=== PATIENT | male | born 1955 ===

== ENCOUNTER 2022-07-27 15:46 | Inpatient (IN) | payer MEDICARE, MEDICAID, SELFPAY ==
--- OUTSIDE RECORDS SUMMARY | 2022-07-27 15:52 | XMS_ITS | Continuity of Care Document ---
:1955 Author Organization [facility] Address [address] [place] [address]- Care Team Providers Name Role Phone Zoila Khan MD Primary Care Physician Encounter [facility] [place](s): 05/29/21 - 06/28/21 [facility] [address] [address] Attending Physician: Gely Jackson Admitting Physician: Gely Jackson Referring Physician: AdmtrGely Allergies, Adverse Reactions, Alerts Substance Reaction Severity Status venlafaxine Active Immunizations Given and Recorded Vaccine Date Status Refusal Reason Influenza Vaccine (oldterm)1 06/04/17 Given tetanus/diphtheria/pertussis, acel(Tdap) 04/25/15 Given Pneumococcal Vacc (oldterm)2 02/08/12 Given 1Admin Note: Per list from [id number] Note: Per info from PCP Medications atorvastatin 40 mg oral tablet 1 tablet = 40 mg, By Mouth, Daily at bedtime, 0 Refills, Maintenance, 12/20/14 14:31:03 Start Date: 12/20/14 Status: OrderedCane See Instructions, # 1 units, Maintenance, Quad cane for gait instability due to neuropathy, 05/15/1310:12:06, Compound Start Date: 05/15/13 Status: Orderedcitalopram 20 mg oral tablet 2 tablet = 40 mg, By Mouth, Daily, 0 Refills, Maintenance, 09/08/15 21:42:59 Start Date: 09/08/15 Status: OrderedCPAP Machine See Instructions, # 1 each, Refills 12, Tot. Refills 12, Maintenance, CPAP REPLACMENT (CURRENT MACHINE IS OLD AND NOT MEETING HIS NEEDS) CPAP AUTO TITRATION @ 8-16 CM H20 ALL PAP SUPPLIES: TUBING, HEADGEAR, FULL FACE/NASAL MASK, WATER CHAMBER, AND... Start Date: 01/31/15 Status: OrderedCPAP Equipment See Instructions, # 1 each, Refills 11, Tot. Refills 11, Maintenance, DX; G47.33 All Pap Supplies Headgear, Chinstrap, Climate line tubing, Full Face/Nasal Mask, Heated Humidifier, Water Chamber, Filters, etc., refill all supplies, needed for lifetim... Start Date: 10/16/18 Status: OrderedCPAP Equipment See Instructions, # 1 each, Refills 12, Tot. Refills 12, Maintenance, Heated Humidifier Dx RENETTA BHIRS, 03/03/15 14:32:05, Compound Start Date: 03/03/15 Status: OrderedDaily Multi oral tablet 1 tablet, By Mouth, Daily, 0 Refills, Maintenance Start Date: 07/21/13 Status: Orderedelppa CoQ10 = 50 mg, By Mouth, Daily, 0 Refills, Maintenance, 10/15/18 16:24:51 EST Start Date: 10/15/18 Status: OrderedFish Oil = 1,000 mg, By Mouth, Daily, 0 Refills, Maintenance, 09/08/15 21:45:12 Start Date: 09/08/15 Status: Orderedfurosemide 20 mg oral tablet 1.5 tab, By Mouth, Daily, # 30 tablet, Refills 0, Maintenance, 10/23/17 15:28:35 Start Date: 10/23/17 Status: OrderedHydrocodone By Mouth, 0 Refills, Maintenance, 10/15/18 16:26:40 EST Start Date: 10/15/18 Status: Orderedlevothyroxine 112 mcg (0.112 mg) oral capsule 1 capsule = 112 mcg, By Mouth, Daily, # 30 capsule, 0 Refills, Maintenance, 10/15/18 16:23:50 EST, Capsule Start Date: 10/15/18 Status: OrderedLidocaine 5% Topical 1 patch, Topically, 2 times a day, PRN as needed for pain, 0 Refills, Maintenance, Ointment Start Date: 10/23/17 Status: Orderedlosartan 50 mg oral tablet 50 mg, 1, tablet, By Mouth, Daily, # 30 tablet, Refills 0, Maintenance, 05/05/16 12:00:47 Start Date: 01/05/16 Status: Orderedpantoprazole 20 mg oral delayed release tablet 1 tablet = 20 mg, By Mouth, Daily, # 180 tablet, 0 Refills, Maintenance, 10/23/17 15:39:21, EC Tablet Start Date: 10/23/17 Status: Orderedsulindac 200 mg oral tablet 1 tablet = 200 mg, By Mouth, 2 times a day, 0 Refills, Maintenance, 09/08/15 21:43:49 Start Date: 09/08/15 Status: OrderedTramadol By Mouth, 0 Refills, Maintenance, 10/15/18 16:26:20 EST Start Date: 10/15/18 Status: OrderedtraZODone 100 mg oral tablet 1 tablet = 100 mg, By Mouth, Daily at bedtime, 0 Refills, Maintenance, 09/08/15 21:42:22 Start Date: 09/08/15 Status: OrderedVitamin B12 1000 mcg oral tablet 1 tablet = 1,000 mcg, By Mouth, Daily, # 30 tablet, 0 Refills, Maintenance, 10/15/18 16:26:08 EST, Tablet Start Date: 10/15/18 Status: Ordered Problem List Condition Effective Dates Status Health Status Informant Facet arthropathy, lumbar(Confirmed) Active Degeneration of lumbar intervertebral Active disc(Confirmed) Peripheral neuropathy(Confirmed)1 Active Disseminated idiopathic skeletal Active hyperostosis(Confirmed) Edema of lower extremity(Confirmed) Active Hypothyroidism(Confirmed) Active Impotence of organic origin(Confirmed) Active Insomnia(Confirmed) Active Low back pain(Confirmed) Active Mixed hyperlipidemia(Confirmed) Active Myofascial pain(Confirmed) Active Obstructive sleep apnea(Confirmed)2 Active Osteoarthritis of knee(Confirmed) Active Panic disorder without Active agoraphobia(Confirmed) Psychosexual dysfunction(Confirmed) Active Restless legs(Confirmed) Active 1Peripheral Neuropathic Cgzr3VPI 5.0, SMSWM, 04/21/07 Social History Social History Type Response Smoking Status Former smoker; Tobacco user in household: No; Type: Cigarettes; Number of years: 46; Started at age: 13; Stopped at age: 56; entered on: 10/04/15 Sex
--- OUTSIDE RECORDS SUMMARY | 2022-07-27 15:52 | XMS_ITS | Continuity of Care Document ---
:1955 Author Organization [facility] Address [address] [place] [address]- Care Team Providers Name Role Phone Zoila Khan MD Primary Care Physician Encounter [facility] [place] Date(s): 02/24/21 - 03/26/21 [facility] [address] [place] [address]- Attending Physician: Gely Jackson Admitting Physician: Gely Jackson Referring Physician: AdmtrGely Allergies, Adverse Reactions, Alerts Substance Reaction Severity Status venlafaxine Active Immunizations Given and Recorded Vaccine Date Status Refusal Reason Influenza Vaccine (oldterm)1 06/04/17 Given tetanus/diphtheria/pertussis, acel(Tdap) 04/25/15 Given Pneumococcal Vacc (oldterm)2 02/08/12 Given 1Admin Note: Per list from [id number] Note: Per info from PCP Medications atorvastatin [...] MEETING HIS NEEDS) CPAP AUTO TITRATION @ - CM H20 ALL PAP SUPPLIES: TUBING, HEADGEAR, [...] Daily, # 30 tablet, Refills 0, Maintenance, 01/05/16 12:00:47 Start Date: 01/05/16 Status: Orderedpantoprazole 20 [...] dysfunction(Confirmed) Active Restless legs(Confirmed) Active 1Peripheral Neuropathic Ntop2VMQ 5.0, SMSWM, 04/21/07 Social History Social History Type Response Smoking Status Former smoker; Tobacco user in household: No; Type: Cigarettes; Number of years: 46; Started at age: 13; Stopped at age: 56; entered on: 10/04/15 Sex
--- OUTSIDE RECORDS SUMMARY | 2022-07-27 15:52 | XMS_ITS | Continuity of Care Document ---
:1955 Author Organization [facility] Address [address] [place] [address]- Care Team Providers Name Role Phone Bill SANCHEZ, Zoila Jason Primary Care Physician Encounter [facility] [place] Date(s): 02/15/21 - 03/26/21 [facility] [address] [place] [address]- Attending Physician: Gwyn Benitez MD Admitting Physician: Gwyn Benitez MD Referring Physician: Marshall Saavedra MD Allergies, Adverse Reactions, Alerts Substance Reaction Severity Status venlafaxine Active Immunizations Given and Recorded Vaccine Date Status Refusal Reason Influenza Vaccine (oldterm)1 06/04/17 Given tetanus/diphtheria/pertussis, acel(Tdap) 04/25/15 Given Pneumococcal Vacc (oldterm)2 02/08/12 Given 1Admin Note: Per list from [id number] Note: Per info from PCP Medications atorvastatin [...] dysfunction(Confirmed) Active Restless legs(Confirmed) Active 1Peripheral Neuropathic Yoog0BBF 5.0, SMSWM, 04/21/07 Social History Social History Type Response Smoking Status Former smoker; Tobacco user in household: No; Type: Cigarettes; Number of years: 46; Started at age: 13; Stopped at age: 56; entered on: 10/04/15 Sex
--- OUTSIDE RECORDS SUMMARY | 2022-07-27 15:52 | XMS_ITS | Continuity of Care Document ---
:1955 Author Organization [facility] Address Unavailable , Care Team Providers Name Role Phone Zoila Khan MD Primary Care Physician Encounter [facility] [place] Date(s): 02/22/22 - 03/24/22 [facility] Allergies, Adverse Reactions, Alerts Substance Reaction Severity Status venlafaxine Active Immunizations Given and Recorded Vaccine Date Status Refusal Reason Influenza Vaccine (oldterm)1 06/04/17 Given tetanus/diphtheria/pertussis, acel(Tdap) 04/25/15 Given Pneumococcal Vacc (oldterm)2 02/08/12 Given 1Admin Note: Per list from [id number] Note: Per info from PCP Medications atorvastatin [...] 03/03/15 14:32:05, Compound Start Date: 03/03/15 Status: OrderedCPAP Machine CPAP Machine, See Instructions, # 1 each, Refills 0, Tot. Refills 0, Maintenance, CPAP 8-16cm H2O with heated humidification, mask, tubing, filters, headgear, chin strap, and water chamber. Vinayak provider access to wireless compliance data Length of... Start Date: 03/07/22 Status: OrderedDaily Multi oral tablet 1 tablet, [...] Maintenance, 10/23/17 15:28:35 Start Date: 10/23/17 Status: Orderedlevothyroxine 112 mcg (0.112 mg) oral [...] 01/05/16 12:00:47 Start Date: 01/05/16 Status: Orderedpantoprazole 40 mg oral delayed release tablet 1 tablet = 40 mg, By Mouth, Daily, # 90 tablet, 3 Refills, Maintenance, 03/18/22 22:55:00 EDT, EC Tablet, 180, cm, 01/02/22 14:07:00 EDT, Height, 131, kg, 01/02/22 14:07:00 EDT, Dry Weight Start Date: 03/18/22 Status: OrderedPreserVision AREDS 2 oral tablet, chewable 2 times a day, 0 Refills, Maintenance, 09/25/21 16:09:00 EST, Partial fill upon patient request if the prescription is for a schedule II opioid drug. Start Date: 09/25/21 Status: OrderedSchiff Antartic Krill Oil = 1,000 mg, By Mouth, Daily, 0 Refills, Maintenance, 09/25/21 16:11:00 EST, Partial fill upon patient request if the prescription is for a schedule II opioid drug. Start Date: 09/25/21 Status: OrderedTizanidine By Mouth, Refills 0, Maintenance, 12/07/21 13:42:00 EDT, Partial fill upon patient request if the prescription is for a schedule II opioid drug. Start Date: 12/07/21 Status: OrderedTramadol By Mouth, 0 Refills, Maintenance, 10/15/18 16:26:20 EST Start Date: 10/15/18 Status: OrderedtraZODone 100 mg oral tablet 1 tablet = 100 mg, By Mouth, Daily at bedtime, 0 Refills, Maintenance, 09/08/15 21:42:22 Start Date: 09/08/15 Status: OrderedVitamin D3 1000 intl units oral capsule 1 capsule = 25 mcg, By Mouth, Daily, # 100 capsule, 0 Refills, Maintenance, 09/25/21 16:10:00 EST, Capsule, Partial fill upon patient request if the prescription is for a schedule II opioid drug. Start Date: 09/25/21 Status: Ordered Problem List Condition Effective Dates [...] agoraphobia(Confirmed) Psychosexual dysfunction(Confirmed) Active Restless legs(Confirmed) Active Severe obesity(Confirmed) Active 1Peripheral Neuropathic Cfvz1LOK 5.0, SMSWM, 04/21/07 Social History Social History Type Response Smoking Status Former smoker; Tobacco user in household: No; Type: Cigarettes; Number of years: 46; Started at age: 13; Stopped at age: 56; entered on: 10/04/15 Sex
--- OUTSIDE RECORDS SUMMARY | 2022-07-27 15:52 | XMS_ITS | Continuity of Care Document ---
:1955 Author Organization [facility] Address Unavailable , Care Team Providers Name Role Phone Zoila Khan MD Primary Care Physician [place] [facility] [place] 09[place]26/[place] - 10/03/21 [facility] Attending Physician: Osvaldo Valdes MD Admitting Physician: Osvaldo Valdes MD Allergies, Adverse Reactions, Alerts Substance Reaction Severity Status venlafaxine Active Immunizations Given and Recorded Vaccine Date Status Refusal Reason Influenza Vaccine (oldterm)1 06/04/17 Given tetanus/diphtheria/pertussis, acel(Tdap) 04/25/15 Given Pneumococcal Vacc (oldterm)2 02/08/12 Given 1Admin Note: Per list from [id number] Note: Per info from PCP Medications atorvastatin [...] 15:39:21, EC Tablet Start Date: 10/23/17 Status: OrderedPreserVision AREDS 2 oral tablet, chewable [...] II opioid drug. Start Date: 09/25/21 Status: OrderedTramadol By Mouth, 0 Refills, Maintenance, [...] dysfunction(Confirmed) Active Restless legs(Confirmed) Active 1Peripheral Neuropathic Hgsu0NIG 5.0, SMSWM, 04/21/07 Vital Signs Most recent to oldest [Reference Range]: 1 Height 180 cm (09/26/21 4:25 PM) Social History Social History Type Response Smoking Status Former smoker; Tobacco user in household: No; Type: Cigarettes; Number of years: 46; Started at age: 13; Stopped at age: 56; entered on: 10/04/15 Sex
--- OUTSIDE RECORDS SUMMARY | 2022-07-27 15:52 | XMS_ITS | Continuity of Care Document ---
:1955 Author Organization [facility] Address [address] [place] [address]- Care Team Providers Name Role Phone Zoila Khan MD Primary Care Physician [place] [facility] [place] Date(s): 05/03/20 - 07/03/20 [facility] [address] [address] [facility] Attending Physician: Dale Irwin MD Admitting Physician: Dale Irwin MD Allergies, Adverse Reactions, Alerts Substance Reaction Severity Status venlafaxine Active Immunizations Given and Recorded Vaccine Date Status Refusal Reason Influenza Vaccine (oldterm)1 06/04/17 Given tetanus/diphtheria/pertussis, acel(Tdap) 04/25/15 Given Pneumococcal Vacc (oldterm)2 02/08/12 Given 1Admin Note: Per list from [id number] Note: Per info from PCP Medications atorvastatin [...] dysfunction(Confirmed) Active Restless legs(Confirmed) Active 1Peripheral Neuropathic Agih2GUP 5.0, SMSWM, 04/21/07 Social History Social History Type Response Smoking Status Former smoker; Tobacco user in household: No; Type: Cigarettes; Number of years: 46; Started at age: 13; Stopped at age: 56; entered on: 10/04/15 Sex
--- OUTSIDE RECORDS SUMMARY | 2022-07-27 15:52 | XMS_ITS | Continuity of Care Document ---
:1955 Author Organization [facility] Address [address] [place] [address]- Care Team Providers Name Role Phone Bill SANCHEZ, Zoila Jason Primary Care Physician Encounter [facility] [place] Date(s): 05/18/20 - 06/17/20 [facility] [address] [address]- [facility] Allergies, Adverse Reactions, Alerts Substance Reaction Severity Status venlafaxine Active Immunizations Given and Recorded Vaccine Date Status Refusal Reason Influenza Vaccine (oldterm)1 06/04/17 Given tetanus/diphtheria/pertussis, acel(Tdap) 04/25/15 Given Pneumococcal Vacc (oldterm)2 02/08/12 Given 1Admin Note: Per list from [id number] Note: Per info from PCP Medications atorvastatin [...] dysfunction(Confirmed) Active Restless legs(Confirmed) Active 1Peripheral Neuropathic Rpaz5EJY 5.0, SMSWM, 04/21/07 Social History Social History Type Response Smoking Status Former smoker; Tobacco user in household: No; Type: Cigarettes; Number of years: 46; Started at age: 13; Stopped at age: 56; entered on: 10/04/15 Sex
--- OUTSIDE RECORDS SUMMARY | 2022-07-27 15:52 | XMS_ITS | Continuity of Care Document ---
:1955 Author Organization [facility] Address [address] [place] [address], [address] [place] [address], [address] [place] [address]- Care Team Providers Name Role Phone Zoila Khan MD Primary Care Physician En[place] [facility] [place](s): 04/27/20 - 05/27/20 [facility] [address] [place] [address], 3rd [facility], [address] [place] [address]- [facility] Allergies, Adverse Reactions, Alerts Substance Reaction Severity Status venlafaxine Active Immunizations Given and Recorded Vaccine Date Status Refusal Reason Influenza Vaccine (oldterm)1 06/04/17 Given tetanus/diphtheria/pertussis, acel(Tdap) 04/25/15 Given Pneumococcal Vacc (oldterm)2 02/08/12 Given 1Admin Note: Per list from [id number] Note: Per info from PCP Medications atorvastatin [...] dysfunction(Confirmed) Active Restless legs(Confirmed) Active 1Peripheral Neuropathic Gjkp3PJQ 5.0, SMSWM, 04/21/07 Social History Social History Type Response Smoking Status Former smoker; Tobacco user in household: No; Type: Cigarettes; Number of years: 46; Started at age: 13; Stopped at age: 56; entered on: 10/04/15 Sex
--- OUTSIDE RECORDS SUMMARY | 2022-07-27 15:52 | XMS_ITS | Continuity of Care Document ---
:1955 Author Organization [facility] Address [address] [place] [address]- Care Team Providers Name Role Phone Zoila Khan MD Primary Care Physician [place] [facility] [place] Date(s[place] 05/30/20 - 06/30/[address] [address]- [facility] Attending Physician: Dale Irwin MD Admitting Physician: Dale Irwin MD Referring Physician: Dale Irwin MD Allergies, Adverse Reactions, Alerts Substance Reaction Severity Status venlafaxine Active Immunizations Given and Recorded Vaccine Date Status Refusal Reason Influenza Vaccine (oldterm)1 06/04/17 Given tetanus/diphtheria/pertussis, acel(Tdap) 04/25/15 Given Pneumococcal Vacc (oldterm)2 02/08/12 Given 1Admin Note: Per list from [id number] Note: Per info from PCP Medications atorvastatin [...] dysfunction(Confirmed) Active Restless legs(Confirmed) Active 1Peripheral Neuropathic Gyds7YCZ 5.0, SMSWM, 04/21/07 Social History Social History Type Response Smoking Status Former smoker; Tobacco user in household: No; Type: Cigarettes; Number of years: 46; Started at age: 13; Stopped at age: 56; entered on: 10/04/15 Sex
--- OUTSIDE RECORDS SUMMARY | 2022-07-27 15:52 | XMS_ITS | Continuity of Care Document ---
:1955 Author Organization [facility] Address [address] [place] [address]- Care Team Providers Name Role Phone Bill SANCHEZ, Zoila Jason Primary Care Physician En[place] [facility] [place](s): 03/28/20 - 04/27/20 [facility] [address] [address] [facility] Attending Physician: Gely Jackson Admitting Physician: Gely Jackson Referring Physician: AdmtrGely Allergies, Adverse Reactions, Alerts Substance Reaction Severity Status venlafaxine Active Immunizations Given and Recorded Vaccine Date Status Refusal Reason Influenza Vaccine (oldterm)1 06/04/17 Given tetanus/diphtheria/pertussis, acel(Tdap) 04/25/15 Given Pneumococcal Vacc (oldterm)2 02/08/12 Given 1Admin Note: Per list from [id number] Note: Per info from PCP Medications atorvastatin [...] Hypothyroidism(Confirmed) Active Impotence of organic origin(Confirmed) Active Low back pain(Confirmed) Active Mixed hyperlipidemia(Confirmed) Active Myofascial pain(Confirmed) Active Obstructive sleep apnea(Confirmed)2 Active Osteoarthritis of knee(Confirmed) Active Panic disorder 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
--- OUTSIDE RECORDS SUMMARY | 2022-07-27 15:52 | XMS_ITS | Continuity of Care Document ---
:1955 Author Organization [facility] Address [address] [facility] [address] [place] [address]- Care Team Providers Name Role Phone Zoila Khan MD Primary Care Physician Encounter [facility] [place] Date(s): 09/10/19 - 01/06/20 [facility] [address] [facility] [address] [place] [address]- [facility] Attending Physician: Osvaldo Valdes MD Admitting Physician: Osvaldo Valdes MD Referring Physician: Zoila Khan MD Allergies, Adverse Reactions, Alerts Substance Reaction Severity Status venlafaxine Active Immunizations Given and Recorded Vaccine Date Status Refusal Reason Influenza Vaccine (oldterm)1 06/04/17 Given tetanus/diphtheria/pertussis, acel(Tdap) 04/25/15 Given Pneumococcal Vacc (oldterm)2 02/08/12 Given 1Admin Note: Per list from [id number] Note: Per info from PCP Medications atorvastatin [...] dysfunction(Confirmed) Active Restless legs(Confirmed) Active 1Peripheral Neuropathic Gwhh3BNZ 5.0, SMSWM, 04/21/07 Social History Social History Type Response Smoking Status Former smoker; Tobacco user in household: No; Type: Cigarettes; Number of years: 46; Started at age: 13; Stopped at age: 56; entered on: 10/04/15 Sex
--- OUTSIDE RECORDS SUMMARY | 2022-07-27 15:52 | XMS_ITS | Continuity of Care Document ---
:1955 Author Organization [facility] Address [address] [place] [address]- Care Team Providers Name Role Phone Zoila Khan MD Primary Care Physician En[place] [facility] [place] Date(s): 01/19/20 - 02/18/20 [facility] [address] [address]- [facility] Attending Physician: Gely Jackson Admitting Physician: Gely Jackson Referring Physician: Gely Jackson Allergies, Adverse Reactions, Alerts Substance Reaction Severity Status venlafaxine Active Immunizations Given and Recorded Vaccine Date Status Refusal Reason Influenza Vaccine (oldterm)1 06/04/17 Given tetanus/diphtheria/pertussis, acel(Tdap) 04/25/15 Given Pneumococcal Vacc (oldterm)2 02/08/12 Given 1Admin Note: Per list from [id number] Note: Per info from PCP Medications atorvastatin [...] dysfunction(Confirmed) Active Restless legs(Confirmed) Active 1Peripheral Neuropathic Pqbe3JXX 5.0, SMSWM, 04/21/07 Social History Social History Type Response Smoking Status Former smoker; Tobacco user in household: No; Type: Cigarettes; Number of years: 46; Started at age: 13; Stopped at age: 56; entered on: 10/04/15 Sex
--- OUTSIDE RECORDS SUMMARY | 2022-07-27 15:52 | XMS_ITS | Continuity of Care Document ---
:1955 Author Organization [facility] Address [address] [place] [address]- Care Team Providers Name Role Phone Zoila Khan MD Primary Care Physician Encounter [facility] [place] Date(s): 03/25/20 - 04/01/20 [facility] [address] [address]- [facility] Attending Physician: Dale Irwni MD Admitting Physician: Dale Irwin MD Referring Physician: Zoila Khan MD Allergies, Adverse Reactions, Alerts Substance Reaction Severity Status venlafaxine Active Immunizations Given and Recorded Vaccine Date Status Refusal Reason Influenza Vaccine (oldterm)1 06/04/17 Given tetanus/diphtheria/pertussis, acel(Tdap) 04/25/15 Given Pneumococcal Vacc (oldterm)2 02/08/12 Given 1Admin Note: Per list from [id number] Note: Per info from PCP Medications atorvastatin [...] dysfunction(Confirmed) Active Restless legs(Confirmed) Active 1Peripheral Neuropathic Fdpr1DLQ 5.0, SMSWM, 04/21/07 Social History Social History Type Response Smoking Status Former smoker; Tobacco user in household: No; Type: Cigarettes; Number of years: 46; Started at age: 13; Stopped at age: 56; entered on: 10/04/15 Sex
--- OUTSIDE RECORDS SUMMARY | 2022-07-27 15:52 | XMS_ITS | Continuity of Care Document ---
:1955 Author Organization [facility] Address Unavailable , Care Team Providers Name Role Phone Zoila Khan MD Primary Care Physician Encounter [facility] Date(s): 09/26/21 - 10/26/21 [facility] Attending Physician: Gely Jackson Admitting Physician: Gely Jackson Referring Physician: Gely Jackson Allergies, Adverse Reactions, Alerts Substance Reaction Severity Status venlafaxine Active Immunizations Given and Recorded Vaccine Date Status Refusal Reason Influenza Vaccine (oldterm)1 06/04/17 Given tetanus/diphtheria/pertussis, acel(Tdap) 04/25/15 Given Pneumococcal Vacc (oldterm)2 02/08/12 Given 1Admin Note: Per list from [id number] Note: Per info from PCP Medications atorvastatin [...] dysfunction(Confirmed) Active Restless legs(Confirmed) Active 1Peripheral Neuropathic Rtqs1KII 5.0, SMSWM, 04/21/07 Social History Social History Type Response Smoking Status Former smoker; Tobacco user in household: No; Type: Cigarettes; Number of years: 44; Started at age: 13; Stopped at age: 56; entered on: 10/04/15 Sex
--- OUTSIDE RECORDS SUMMARY | 2022-07-27 15:52 | XMS_ITS | Continuity of Care Document ---
:1955 Author Organization [facility] Address [address] [place] [address]- Care Team Providers Name Role Phone Zoila Khan MD Primary Care Physician Encounter [facility] Date(s): 04/18/22 - 04/25/22 [facility] [address] [place] [phone]- Attending Physician: Elisha Alvares MD Admitting Physician: Elisha Alvares MD Referring Physician: Zoila Khan MD Allergies, Adverse Reactions, Alerts Substance Reaction Severity Status venlafaxine Active Immunizations Given and Recorded Vaccine Date Status Refusal Reason Influenza Vaccine (oldterm)1 06/04/17 Given tetanus/diphtheria/pertussis, acel(Tdap) 04/25/15 Given Pneumococcal Vacc (oldterm)2 02/08/12 Given 1Admin Note: Per list from [id number] Note: Per info from PCP Medications atorvastatin [...] legs(Confirmed) Active Severe obesity(Confirmed) Active 1Peripheral Neuropathic Uydr6HON 5.0, SMSWM, 04/21/07 Vital Signs Most recent to oldest [Reference Range]: 1 Height 180 cm (04/18/22 11:14 AM) Weight 134.1 kg (04/18/22 11:14 AM) Oxygen Saturation [94-100 %] 95 % (04/18/22 11:14 AM) Pulse Rate [55-90 bpm] 73 bpm (04/18/22 11:14 AM) Body Mass Index [18.5-24.99] 41.39 *>HHI* (04/18/22 11:14 AM) Blood Pressure [90-138/55-84 mm Hg] 100/48 mm Hg (04/18/22 11:14 AM) Blood pressure sites Arm, left (04/18/22 11:14 AM) Weight Obtained Via Standing scale (04/18/22 11:14 AM) Social History Social History Type Response Smoking Status Former smoker; Tobacco user in household: No; Type: Cigarettes; Number of years: 44; Started at age: 13; Stopped at age: 56; entered on: 10/04/15 Sex
--- OUTSIDE RECORDS SUMMARY | 2022-07-27 15:52 | XMS_ITS | Continuity of Care Document ---
:1955 Author Organization [facility] Address [address] [facility] [address] [place] [id number]- Care Team Providers Name Role Phone Zoila Khan MD Primary Care Physician Encounter [facility] Date(s): 12/07/19 - 12/17/19 [facility] [address] [facility] [address] [place] [address]- [facility] Attending Physician: Gely Jackson Admitting Physician: Gely Jackson Referring Physician: Gely Jackson Allergies, Adverse Reactions, Alerts Substance Reaction Severity Status venlafaxine Active Immunizations Given and Recorded Vaccine Date Status Refusal Reason Influenza Vaccine (oldterm)1 06/04/17 Given tetanus/diphtheria/pertussis, acel(Tdap) 04/25/15 Given Pneumococcal Vacc (oldterm)2 02/08/12 Given 1Admin Note: Per list from [id number] Note: Per info from PCP Medications atorvastatin [...] dysfunction(Confirmed) Active Restless legs(Confirmed) Active 1Peripheral Neuropathic Inkt7NAV 5.0, [facility], 04/21/07 Social History Social History Type Response Smoking Status Former smoker; Tobacco user in household: No; Type: Cigarettes; Number of years: 44; Started at age: 13; Stopped at age: 56; entered on: 10/04/15 Sex
--- OUTSIDE RECORDS SUMMARY | 2022-07-27 15:52 | XMS_ITS | Continuity of Care Document ---
:1955 Author Organization [facility] Address [address] [place] [phone]- Care Team Providers Name Role Phone Zoila Khan MD Primary Care Physician [place] [facility] Date(s): 02/05/21 - 02/06/[address] [address]- Discharge Disposition: Transfer Schedule Clerk Care Attending Physician: Luis Mckenzie MD Admitting Physician: Luis Mckenzie MD Referring Physician: Not on Staff, Referring MD Allergies, Adverse Reactions, Alerts Substance Reaction Severity Status venlafaxine Active Immunizations Given and Recorded Vaccine Date Status Refusal Reason Influenza Vaccine (oldterm)1 06/04/17 Given tetanus/diphtheria/pertussis, acel(Tdap) 04/25/15 Given Pneumococcal Vacc (oldterm)2 02/08/12 Given 1Admin Note: Per list from [id number] Note: Per info from PCP Medications atorvastatin [...] Maintenance, 01/05/16 12:00:47 Start Date: 01/05/16 Status: OrderedMorPHINE Inj 4 mg, Injection, IV Push Slowly, Every 30 minutes for 3 doses/times, PRN for Pain , Moderate, STAT, 02/05/21 23:29:00 EDT, Stop date Limited # of times Start Date: 02/05/21 Stop Date: 02/06/21 Status: Completedpantoprazole 20 mg oral delayed release tablet 1 [...] dysfunction(Confirmed) Active Restless legs(Confirmed) Active 1Peripheral Neuropathic Rvix4RNF 5.0, SMSWM, 04/21/07 Results Radiology Reports Exam Date Time Procedure Performing Provider Status 02/05/21 11:18 PM XR Hip w/Pelvis 2-3 View Left Maryam Monk (Verified) Notes:(XR Hip w/Pelvis 2-3 View Left) Reason For Exam: PainRESULT: XR Hip w/Pelvis 2-3 View Left XR Hip w/Pelvis 2-3 View Left Hx of Present Illness: Atraumatic left hip pain for last week, has been having increasing difficultywith ambulation, movement. Has been able to bear minimal weight. Patient does have hx of back surgery w fusions present down spine.; Reason: Pain; Clinical Question(s): Fracture COMPARISON: 01/21/2020 FINDINGS: There is no fracture or dislocation. Moderate medial bilateral hip joint space narrowing. Mild acetabular osteophytic spurring. Status post lower lumbar spinal fusion. Osseous fusion across the inferior bilateral sacroiliac joints. Normal soft tissues. IMPRESSION: No acute findings. Degenerative changes as described. WSN: [id number] Ordering Physician: Mitch Covarrubias Dictated By: Bert Anderson DO Dictated Date/Time: 02/05/21 11:22 p Reviewed By: Bert Anderson DO Signed By: Bert Anderson DO Signed Date/Time: 02/05/21 11:22 pm Transcribed By: GABY Transcribed Date/Time: 02/05/21 11:20 pm Vital Signs Most recent to oldest [Reference 1 2 3 Range]: Height 180 cm 180 cm 180 cm (02/06/21 3:46 PM) (02/06/21 2:55 AM) (02/05/21 8:49 P M) Weight 134 kg 134 kg 134 kg (02/06/21 3:46 PM) (02/06/21 2:55 AM) (02/05/21 8:49 P M) Oxygen Saturation [94-100 %] 95 % 95 % 95 % (02/06/21 3:46 PM) (02/06/21 8:00 AM) (02/06/21 2:55 A M) Pulse Rate [55-90 bpm] 68 bpm 67 bpm 67 bpm (02/06/21 3:46 PM) (02/06/21 8:00 AM) (02/06/21 2:55 A M) Body Mass Index [18.5-24.99] 41.36 41.36 *>HHI* *>HHI* (02/06/21 3:46 PM) (02/06/21 2:55 AM) Blood Pressure [90-138/55-84 mm 132/78 mm Hg 130/76 mm Hg 118/70 mm Hg Hg] (02/06/21 3:46 PM) (02/06/21 8:00 AM) (02/06/21 2:55 A M) Respiratory Rate [16-30 br/min] 16 br/min 16 br/min 16 br/min (02/06/21 3:46 PM) (02/06/21 8:00 AM) (02/06/21 7:54 A M) Temperature [96.8-100.4 DegF] 96.6 DegF 97.5 DegF 98 .4 DegF *L* (02/06/21 2:55 AM) (02/05/21 8:49 PM ) (02/06/21 8:00 AM) Mode of Delivery (Oxygen) Room air Room air Room a ir (02/06/21 8:00 AM) (02/06/21 2:55 AM) (02/05/21 8:49 P M) Blood pressure sites Arm, right Arm, right Arm, left (02/06/21 8:00 AM) (02/06/21 2:55 AM) (02/05/21 8:49 P M) Temperature Route Oral Oral Oral (02/06/21 8:00 AM) (02/06/21 2:55 AM) (02/05/21 8:49 P M) Dry Weight 134 kg 134 kg 134 kg (02/06/21 3:46 PM) (02/06/21 2:55 AM) (02/05/21 8:49 P M) Social History Social History Type Response Smoking Status Former smoker; Tobacco user in household: No; Type: Cigarettes; Number of years: 46; Started at age: 13; Stopped at age: 56; entered on: 10/04/15 Sex
--- OUTSIDE RECORDS SUMMARY | 2022-07-27 15:52 | XMS_ITS | Continuity of Care Document ---
:1955 Author Organization [facility] Address [address] [place] [phone]- Care Team Providers Name Role Phone Zoila Khan MD Primary Care Physician Encounter [facility] Date(s): 05/31/22 - 06/30/22 [facility] [address] [address] Attending Physician: Gely Jackson Admitting Physician: Gely Jackson Referring Physician: Gely Jackson Allergies, Adverse Reactions, Alerts Substance Reaction Severity Status venlafaxine Active Immunizations Given and Recorded Vaccine Date Status Refusal Reason Influenza Vaccine (oldterm)1 06/04/17 Given tetanus/diphtheria/pertussis, acel(Tdap) 04/25/15 Given Pneumococcal Vacc (oldterm)2 02/08/12 Given 1Admin Note: Per list from [id number] Note: Per info from PCP Medications atorvastatin [...] Date: 09/25/21 Status: Ordered Problem List Condition Confirmation Course Effective Dates Status Health I nformant Status Facet arthropathy, Confirmed Active lumbar Degeneration of Confirmed Active lumbar intervertebral disc Peripheral Confirmed Active neuropathy1 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 Edema of lower Confirmed Active extremity Hypothyroidism Confirmed Active Impotence of organic Confirmed Active origin Insomnia Confirmed Active Low back pain Confirmed Active Mixed hyperlipidemia Confirmed Active Myofascial pain Confirmed Active Obstructive sleep Confirmed Active apnea2 Osteoarthritis of Confirmed Active knee Panic disorder Confirmed Active without agoraphobia Psychosexual Confirmed Active dysfunction Restless legs Confirmed Active Severe obesity Confirmed Active 1Peripheral Neuropathic Vrxq6PKH 5.0, SMSWM, 04/21/07 Social History Social History Type Response Smoking Status Former smoker; Tobacco user in household: No; Type: Cigarettes; Number of years: 44; Started at age: 13; Stopped at age: 56; entered on: 10/04/15 Sex Patient Care team information PersonnelName: Bill SANCHEZ, Zoila Jason Address: Address: [address] [place] [address]
--- OUTSIDE RECORDS SUMMARY | 2022-07-27 15:52 | XMS_ITS | Continuity of Care Document ---
:1955 Author Organization [facility] Address Unavailable , Care Team Providers Name Role Phone Zoila Khan MD Primary Care Physician Encounter [facility] Date(s): 12/07/21 - 12/14/21 [facility] Attending Physician: Ramón JOHNSON, Gabriella Thornton Admitting Physician: Ramón JOHNSON, Gabriella Thornton Referring Physician: Zoila Khan MD Allergies, Adverse Reactions, Alerts Substance Reaction Severity Status venlafaxine Active Immunizations Given and Recorded Vaccine Date Status Refusal Reason Influenza Vaccine (oldterm)1 06/04/17 Given tetanus/diphtheria/pertussis, acel(Tdap) 04/25/15 Given Pneumococcal Vacc (oldterm)2 02/08/12 Given 1Admin Note: Per list from [id number] Note: Per info from PCP Medications atorvastatin [...] legs(Confirmed) Active Severe obesity(Confirmed) Active 1Peripheral Neuropathic Rmxy7CJT 5.0, SMSWM, 04/21/07 Vital Signs Most recent to oldest [Reference Range]: 1 Height 180 cm (12/07/21 1:39 PM) Weight 133.0 kg (12/07/21 1:39 PM) Body Mass Index [18.5-24.99] 41.05 *>HHI* (12/07/21 1:39 PM) Blood Pressure [90-138/55-84 mm Hg] 118/72 mm Hg (12/07/21 1:39 PM) Blood pressure sites Arm, right (12/07/21 1:39 PM) Weight Obtained Via Standing scale (12/07/21 1:39 PM) Social History Social History Type Response Smoking Status Former smoker; Tobacco user in household: No; Type: Cigarettes; Number of years: 46; Started at age: 13; Stopped at age: 56; entered on: 10/04/15 Sex
--- OUTSIDE RECORDS SUMMARY | 2022-07-27 15:52 | XMS_ITS | Continuity of Care Document ---
:1955 Author Organization [facility] Address [address] [place] [address]- Care Team Providers Name Role Phone Zoila Khan MD Primary Care Physician Encounter [facility] Date(s): 05/20/20 - 05/27/20 [facility] [address] [place] [phone] [facility] Encounter Diagnosis Obstructive sleep apnea (Discharge Diagnosis) - 05/20/20 Insomnia (Discharge Diagnosis) - 05/20/20 Restless legs (Discharge Diagnosis) - 05/20/20 Attending Physician: Dale Irwin MD Admitting Physician: Dale Irwin MD Referring Physician: Zoila Khan MD Allergies, Adverse Reactions, Alerts Substance Reaction Severity Status venlafaxine Active Immunizations Given and Recorded Vaccine Date Status Refusal Reason Influenza Vaccine (oldterm)1 06/04/17 Given tetanus/diphtheria/pertussis, acel(Tdap) 04/25/15 Given Pneumococcal Vacc (oldterm)2 02/08/12 Given 1Admin Note: Per list from [id number] Note: Per info from PCP Medications atorvastatin [...] dysfunction(Confirmed) Active Restless legs(Confirmed) Active 1Peripheral Neuropathic Ufmn2GWA 5.0, SMSWM, 04/21/07 Diagnosis Diagnosis Type Effective Dates Health Clinical Infor [facility] Status Service Restless legs Discharge 05/20/20 Diagnosis Obstructive sleep Discharge 05/20/20 apnea Diagnosis Insomnia Discharge 05/20/20 Diagnosis Vital Signs Most recent to oldest [Reference Range]: 1 Height 180 cm (05/20/20 4:15 PM) Weight 134 kg (05/20/20 4:15 PM) Social History Social History Type Response Smoking Status Former smoker; Tobacco user in household: No; Type: Cigarettes; Number of years: 46; Started at age: 13; Stopped at age: 56; entered on: 10/04/15 Sex
--- OUTSIDE RECORDS SUMMARY | 2022-07-27 15:53 | XMS_ITS | Continuity of Care Document ---
:1955 Author Organization [facility] Address Unavailable , Care Team Providers Name Role Phone Zoila Khan MD Primary Care Physician [place] [facility] Date(s): 06/13/21 - 06/20/21 [facility] Attending Physician: Osvaldo Valdes MD Admitting Physician: Osvaldo Valdes MD Referring Physician: Zoila Khan MD Allergies, Adverse Reactions, Alerts Substance Reaction Severity Status venlafaxine Active Immunizations Given and Recorded Vaccine Date Status Refusal Reason Influenza Vaccine (oldterm)1 06/04/17 Given tetanus/diphtheria/pertussis, acel(Tdap) 04/25/15 Given Pneumococcal Vacc (oldterm)2 02/08/12 Given 1Admin Note: Per list from [id number] Note: Per info from PCP Medications atorvastatin [...] dysfunction(Confirmed) Active Restless legs(Confirmed) Active 1Peripheral Neuropathic Blfr7GZT 5.0, SMSWM, 04/21/07 Vital Signs Most recent to oldest [Reference Range]: 1 Height 180 cm (06/13/21 1:55 PM) Weight 124.8 kg (06/13/21 1:55 PM) Oxygen Saturation [94-100 %] 97 % (06/13/21 1:55 PM) Pulse Rate [55-90 bpm] 78 bpm (06/13/21 1:55 PM) Body Mass Index [18.5-24.99] 38.52 *>HHI* (06/13/21 1:55 PM) Blood Pressure [90-138/55-84 mm Hg] 128/74 mm Hg (06/13/21 1:55 PM) Mode of Delivery (Oxygen) Room air (06/13/21 1:55 PM) Blood pressure sites Arm, left (06/13/21 1:55 PM) Weight Obtained Via Patient/family stated (06/13/21 1:55 PM) Social History Social History Type Response Smoking Status Former smoker; Tobacco user in household: No; Type: Cigarettes; Number of years: 46; Started at age: 13; Stopped at age: 56; entered on: 10/04/15 Sex
--- OUTSIDE RECORDS SUMMARY | 2022-07-27 15:53 | XMS_ITS | Continuity of Care Document ---
:1955 Author Organization [facility] Address [address] [place] [address]- Care Team Providers Name Role Phone Zoila Khan MD Primary Care Physician En[place] [facility] Date(s): 05/13/20 - 06/12/20 [facility] [address] [place] [address] [facility] Attending Physician: Gely Jackson Admitting Physician: Gely Jackson Referring Physician: AdmtrGely Allergies, Adverse Reactions, Alerts Substance Reaction Severity Status venlafaxine Active Immunizations Given and Recorded Vaccine Date Status Refusal Reason Influenza Vaccine (oldterm)1 06/04/17 Given tetanus/diphtheria/pertussis, acel(Tdap) 04/25/15 Given Pneumococcal Vacc (oldterm)2 02/08/12 Given 1Admin Note: Per list from [id number] Note: Per info from PCP Medications atorvastatin [...] dysfunction(Confirmed) Active Restless legs(Confirmed) Active 1Peripheral Neuropathic Oppr6DMC 5.0, SMSWM, 04/21/07 Social History Social History Type Response Smoking Status Former smoker; Tobacco user in household: No; Type: Cigarettes; Number of years: 46; Started at age: 13; Stopped at age: 56; entered on: 10/04/15 Sex
--- OUTSIDE RECORDS SUMMARY | 2022-07-27 15:53 | XMS_ITS | Continuity of Care Document ---
:1955 Author Organization [facility] Address [address] [place] [address]- Care Team Providers Name Role Phone Zoila Khan MD Primary Care Physician Encounter [facility] Date(s): 03/21/22 - 04/20/[address] [address]- Attending Physician: Gely Jackson Admitting Physician: Gely Jackson Referring Physician: AdmtrGely Allergies, Adverse Reactions, Alerts Substance Reaction Severity Status venlafaxine Active Immunizations Given and Recorded Vaccine Date Status Refusal Reason Influenza Vaccine (oldterm)1 06/04/17 Given tetanus/diphtheria/pertussis, acel(Tdap) 04/25/15 Given Pneumococcal Vacc (oldterm)2 02/08/12 Given 1Admin Note: Per list from NBP4Eumks Note: Per info from PCP Medications atorvastatin [...] legs(Confirmed) Active Severe obesity(Confirmed) Active 1Peripheral Neuropathic Qoae9ZIS 5.0, SMSWM, 04/21/07 Social History Social History Type Response Smoking Status Former smoker; Tobacco user in household: No; Type: Cigarettes; Number of years: 46; Started at age: 13; Stopped at age: 56; entered on: 10/04/15 Sex
--- OUTSIDE RECORDS SUMMARY | 2022-07-27 15:53 | XMS_ITS | Continuity of Care Document ---
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) - 01/19/20 Attending Physician: Dale Irwin MD Admitting Physician: Dale Irwin MD Referring Physician: Zoila Khan MD Allergies, Adverse Reactions, Alerts Substance Reaction Severity Status venlafaxine Active Immunizations Given and Recorded Vaccine Date Status Refusal Reason Influenza Vaccine (oldterm)1 06/04/17 Given tetanus/diphtheria/pertussis, acel(Tdap) 04/25/15 Given Pneumococcal Vacc (oldterm)2 02/08/12 Given 1Admin Note: Per list from [id number] Note: Per info from PCP Medications atorvastatin [...] dysfunction(Confirmed) Active Restless legs(Confirmed) Active 1Peripheral Neuropathic Bfaq5GEO 5.0, SMSWM, 04/21/07 Diagnosis Diagnosis Type Effective Dates Health Clinical Infor mant Status Service Restless legs Discharge 01/19/20 Diagnosis Obstructive sleep Discharge 01/19/20 apnea Diagnosis Insomnia secondary Discharge 01/19/20 to anxiety Diagnosis Tiredness Discharge 01/19/20 Diagnosis Social History Social History Type Response Smoking Status Former smoker; Tobacco user in household: No; Type: Cigarettes; Number of years: 46; Started at age: 13; Stopped at age: 56; entered on: 10/04/15 Sex
--- OUTSIDE RECORDS SUMMARY | 2022-07-27 15:53 | XMS_ITS | Continuity of Care Document ---
:1955 Author Organization [facility] Address [address] [place] [address]- Care Team Providers Name Role Phone Zoila Khan MD Primary Care Physician Encounter [facility] [place] Date(s): 01/02/22 - 01/02/[address] [address]- Discharge Disposition: A-D/C Home Attending Physician: Elisha Alvares MD Admitting Physician: Elisha Alvares MD Referring Physician: Elisha Alvares MD Allergies, Adverse Reactions, Alerts Substance Reaction Severity Status venlafaxine Active Immunizations Given and Recorded Vaccine Date Status Refusal Reason Influenza Vaccine (oldterm)1 06/04/17 Given tetanus/diphtheria/pertussis, acel(Tdap) 04/25/15 Given Pneumococcal Vacc (oldterm)2 02/08/12 Given 1Admin Note: Per list from [id number] Note: Per info from PCP Medications atorvastatin [...] legs(Confirmed) Active Severe obesity(Confirmed) Active 1Peripheral Neuropathic Ytjx6NOG 5.0, SMSWM, 04/21/07 Vital Signs Most recent to oldest [Reference 1 2 3 Range]: Height 180 cm (01/02/22 2:07 PM) Oxygen Saturation [94-100 %] 95 % 95 % 97 % (01/02/22 3:25 PM) (01/02/22 3:00 PM) (01/02/22 2:55 P M) Pulse Rate [55-90 bpm] 78 bpm (01/02/22 2:07 PM) Blood Pressure [90-138/55-84 mm 142/83 mm Hg 127/86 mm Hg 131/104 mm Hg Hg] *H* (01/02/22 2:55 PM) (01/02/22 2:50 PM ) (01/02/22 3:00 PM) Respiratory Rate [16-30 br/min] 17 br/min 15 br/min 15 br/min (01/02/22 3:00 PM) *L* *L* (01/02/22 2:55 PM) (01/02/22 2:50 PM ) Temperature [96.8-100.4 DegF] 98.8 DegF (01/02/22 2:07 PM) Liters per Minute 3 L/min 6 L/min (01/02/22 2:55 PM) (01/02/22 2:50 PM) Mode of Delivery (Oxygen) Room air Room air (01/02/22 3:25 PM) (01/02/22 2:07 PM) Blood pressure sites Arm, left (01/02/22 2:07 PM) Temperature Route Temporal (01/02/22 2:07 PM) Dry Weight 131 kg (01/02/22 2:07 PM) Dry Weight Obtained Via Standing scale (01/02/22 2:07 PM) Social History Social History Type Response Smoking Status Former smoker; Tobacco user in household: No; Type: Cigarettes; Number of years: 46; Started at age: 13; Stopped at age: 56; entered on: 10/04/15 Sex
--- OUTSIDE RECORDS SUMMARY | 2022-07-27 15:53 | XMS_ITS | Continuity of Care Document ---
:1955 Author Organization [facility] Address [address] [place] [address]- Care Team Providers Name Role Phone Zoila Khan MD Primary Care Physician Encounter [facility] [place] Date(s): 04/18/22 - 05/18/22 [facility] [address] [place] [address]- Attending Physician: Gely Jackson Admitting Physician: Gely Jackson Referring Physician: Gely Jackson Allergies, Adverse Reactions, Alerts Substance Reaction Severity Status venlafaxine Active Immunizations Given and Recorded Vaccine Date Status Refusal Reason Influenza Vaccine (oldterm)1 06/04/17 Given tetanus/diphtheria/pertussis, acel(Tdap) 04/25/15 Given Pneumococcal Vacc (oldterm)2 02/08/12 Given 1Admin Note: Per list from [id number] Note: Per info from PCP Medications atorvastatin [...] legs(Confirmed) Active Severe obesity(Confirmed) Active 1Peripheral Neuropathic Lzta7JZG 5.0, SMSWM, 04/21/07 Social History Social History Type Response Smoking Status Former smoker; Tobacco user in household: No; Type: Cigarettes; Number of years: 44; Started at age: 13; Stopped at age: 56; entered on: 10/04/15 Sex Care Team PersonnelName: Zoila Khan MD Address: [address] [place] [address]
--- OUTSIDE RECORDS SUMMARY | 2022-07-27 15:53 | XMS_ITS | Continuity of Care Document ---
:1955 Author Organization [facility] Address [address] [place] [address]- Care Team Providers Name Role Phone Bill SANCHEZ, Zoila Jason Primary Care Physician Encounter [facility] [place] Date(s): 06/03/20 - 07/03/20 [facility] [address] [address]- [facility] Attending Physician: Gely Jackson Admitting Physician: Gely Jackson Referring Physician: Gely Jackson Allergies, Adverse Reactions, Alerts Substance Reaction Severity Status venlafaxine Active Immunizations Given and Recorded Vaccine Date Status Refusal Reason Influenza Vaccine (oldterm)1 06/04/17 Given tetanus/diphtheria/pertussis, acel(Tdap) 04/25/15 Given Pneumococcal Vacc (oldterm)2 02/08/12 Given 1Admin Note: Per list from [id number] Note: Per info from PCP Medications atorvastatin [...] dysfunction(Confirmed) Active Restless legs(Confirmed) Active 1Peripheral Neuropathic Wlsr3GFM 5.0, SMSWM, 04/21/07 Social History Social History Type Response Smoking Status Former smoker; Tobacco user in household: No; Type: Cigarettes; Number of years: 44; Started at age: 13; Stopped at age: 56; entered on: 10/04/15 Sex
--- OUTSIDE RECORDS SUMMARY | 2022-07-27 15:53 | XMS_ITS | Continuity of Care Document ---
:1955 Author Organization [facility] Address [address] [place] [address]- Care Team Providers Name Role Phone Bill SANCHEZ, Zoila Jason Primary Care Physician [place] [facility] [place]20 - 05/06/20 [facility] [address] [address]- [facility] Encounter Diagnosis Obstructive sleep apnea (Discharge Diagnosis) - 04/29/20 Restless legs (Discharge Diagnosis) - 04/29/20 Insomnia due to medical condition (Discharge Diagnosis) - 04/29/20 Attending Physician: Dale Irwin MD Admitting Physician: Dale Irwin MD Allergies, Adverse Reactions, Alerts Substance Reaction Severity Status venlafaxine Active Immunizations Given and Recorded Vaccine Date Status Refusal Reason Influenza Vaccine (oldterm)1 06/04/17 Given tetanus/diphtheria/pertussis, acel(Tdap) 04/25/15 Given Pneumococcal Vacc (oldterm)2 02/08/12 Given 1Admin Note: Per list from [id number] Note: Per info from PCP Medications atorvastatin [...] dysfunction(Confirmed) Active Restless legs(Confirmed) Active 1Peripheral Neuropathic Dnci2RET 5.0, SMSWM, 04/21/07 Diagnosis Diagnosis Type Effective Dates Health Clinical Infor mant Status Service Obstructive sleep Discharge 04/29/20 apnea Diagnosis Restless legs Discharge 04/29/20 Diagnosis Insomnia due to Discharge 04/29/20 medical condition Diagnosis Social History Social History Type Response Smoking Status Former smoker; Tobacco user in household: No; Type: Cigarettes; Number of years: 44; Started at age: 13; Stopped at age: 56; entered on: 10/04/15 Sex
--- OUTSIDE RECORDS SUMMARY | 2022-07-27 15:53 | XMS_ITS | Continuity of Care Document ---
:1955 Author Organization [facility] Address [address] [place] [address]- Care Team Providers Name Role Phone Zoila Khan MD Primary Care Physician Encounter [facility] [place] Date(s): 03/24/20 - 04/23/20 [facility] [address] [place] [address]- [facility] Allergies, Adverse Reactions, Alerts Substance Reaction Severity Status venlafaxine Active Immunizations Given and Recorded Vaccine Date Status Refusal Reason Influenza Vaccine (oldterm)1 06/04/17 Given tetanus/diphtheria/pertussis, acel(Tdap) 04/25/15 Given Pneumococcal Vacc (oldterm)2 02/08/12 Given 1Admin Note: Per list from [id number] Note: Per info from PCP Medications atorvastatin [...] dysfunction(Confirmed) Active Restless legs(Confirmed) Active 1Peripheral Neuropathic Wglr5VMM 5.0, SMSWM, 04/21/07 Social History Social History Type Response Smoking Status Former smoker; Tobacco user in household: No; Type: Cigarettes; Number of years: 44; Started at age: 13; Stopped at age: 56; entered on: 10/04/15 Sex
--- OUTSIDE RECORDS SUMMARY | 2022-07-27 15:53 | XMS_ITS | Continuity of Care Document ---
:1955 Author Organization [facility] Address [address] [place] [address]- Care Team Providers Name Role Phone Bill SANCHEZ, Zoila Jason Primary Care Physician [place] [facility] [place](s[place] 04/27/20 - 05/27/20 [facility] [address] [address]- [facility] Allergies, Adverse Reactions, Alerts Substance Reaction Severity Status venlafaxine Active Immunizations Given and Recorded Vaccine Date Status Refusal Reason Influenza Vaccine (oldterm)1 06/04/17 Given tetanus/diphtheria/pertussis, acel(Tdap) 04/25/15 Given Pneumococcal Vacc (oldterm)2 02/08/12 Given 1Admin Note: Per list from [id number] Note: Per info from PCP Medications atorvastatin [...] dysfunction(Confirmed) Active Restless legs(Confirmed) Active 1Peripheral Neuropathic Uzmr8EGR 5.0, SMSWM, 04/21/07 Social History Social History Type Response Smoking Status Former smoker; Tobacco user in household: No; Type: Cigarettes; Number of years: 44; Started at age: 13; Stopped at age: 56; entered on: 10/04/15 Sex
--- OUTSIDE RECORDS SUMMARY | 2022-07-27 15:53 | XMS_ITS | Continuity of Care Document ---
:1955 Author Organization [facility] Address [address] [place] [address]- Care Team Providers Name Role Phone Zoila Khan MD Primary Care Physician Encounter [facility] [place] Date(s): 03/25/20 - 04/24/20 [facility] [address] [address]- [facility] Attending Physician: Gely Jackson Admitting Physician: Gely Jackson Referring Physician: AdmtrGely Allergies, Adverse Reactions, Alerts Substance Reaction Severity Status venlafaxine Active Immunizations Given and Recorded Vaccine Date Status Refusal Reason Influenza Vaccine (oldterm)1 06/04/17 Given tetanus/diphtheria/pertussis, acel(Tdap) 04/25/15 Given Pneumococcal Vacc (oldterm)2 02/08/12 Given 1Admin Note: Per list from [id number] Note: Per info from PCP Medications atorvastatin [...] dysfunction(Confirmed) Active Restless legs(Confirmed) Active 1Peripheral Neuropathic Gdth8IAN 5.0, SMSWM, 04/21/07 Social History Social History Type Response Smoking Status Former smoker; Tobacco user in household: No; Type: Cigarettes; Number of years: 44; Started at age: 13; Stopped at age: 56; entered on: 10/04/15 Sex
--- OUTSIDE RECORDS SUMMARY | 2022-07-27 15:53 | XMS_ITS | Continuity of Care Document ---
:1955 Author Organization [facility] Address [address] [place] [address]- Care Team Providers Name Role Phone Zoila Khan MD Primary Care Physician [place] [facility] [place] - 02/21/[address] [address] Discharge Disposition: A-D/C Home Attending Physician: Carol Schofield MD Admitting Physician: Carol Schofield MD Referring Physician: Elisha Alvares MD Allergies, Adverse Reactions, Alerts Substance Reaction Severity Status venlafaxine Active Immunizations Given and Recorded Vaccine Date Status Refusal Reason Influenza Vaccine (oldterm)1 06/04/17 Given tetanus/diphtheria/pertussis, acel(Tdap) 04/25/15 Given Pneumococcal Vacc (oldterm)2 02/08/12 Given 1Admin Note: Per list from [id number] Note: Per info from PCP Medications atorvastatin [...] legs(Confirmed) Active Severe obesity(Confirmed) Active 1Peripheral Neuropathic Qjab4HIZ 5.0, SMSWM, 04/21/07 Social History Social History Type Response Smoking Status Former smoker; Tobacco user in household: No; Type: Cigarettes; Number of years: 44; Started at age: 13; Stopped at age: 56; entered on: 10/04/15 Sex
--- OUTSIDE RECORDS SUMMARY | 2022-07-27 15:53 | XMS_ITS | Continuity of Care Document ---
:1955 Author Organization [facility] Address Unavailable , Care Team Providers Name Role Phone Zoila Khan MD Primary Care Physician Encounter [facility] [place] Date(s): 12/07/21 - 01/06/22 [facility] Attending Physician: Gely Jackson Admitting Physician: AdmtrGely Referring Physician: AdmtrGely Allergies, Adverse Reactions, Alerts Substance Reaction Severity Status venlafaxine Active Immunizations Given and Recorded Vaccine Date Status Refusal Reason Influenza Vaccine (oldterm)1 06/04/17 Given tetanus/diphtheria/pertussis, acel(Tdap) 04/25/15 Given Pneumococcal Vacc (oldterm)2 02/08/12 Given 1Admin Note: Per list from [id number] Note: Per info from PCP Medications atorvastatin [...] legs(Confirmed) Active Severe obesity(Confirmed) Active 1Peripheral Neuropathic Nrhf7NAT 5.0, SMSWM, 8/20/07 Social History Social History Type Response Smoking Status Former smoker; Tobacco user in household: No; Type: Cigarettes; Number of years: 46; Started at age: 13; Stopped at age: 56; entered on: 10/04/15 Sex
--- OUTSIDE RECORDS SUMMARY | 2022-07-27 15:53 | XMS_ITS ---
:1955 Author Care Team Providers Name Role Phone TARYN LONGORIA [facility] OTHER [phone] Allergies Code Code System Name Reaction Severity Status Onset Effexor ? ? Active ? Medications No Medications Reported Notes: med list reviewed not up to maddi e see MAR for complete list Problems Name Status Onset Date Source ? Hypothyroidism Active 10/24/2017 ? Mixed Hyperlipidemia Active 10/24/2017 ? Obesity Active 10/24/2017 ? Depressive Disorder Active 10/24/2017 ? Essential Hypertension Active 10/24/2017 ? Gastroesophageal Reflux Disease without Esophagitis Active 10/24/2017 ? Degenerative Joint Disease Involving Multiple Joints Active 10/24/2017 ? Disseminated Idiopathic Skeletal Hyperostosis Active ? Edema of Lower Extremity Active 10/24/2017 ? Anxiety Active 12/29/2018 ? Obstructive Sleep Apnea Syndrome Active 12/29/2018 ? Restless Legs Active 12/29/2018 ? Neuropathy Active 12/29/2018 ? Hypertensive Disorder Active 12/29/2018 ? Peripheral Vascular Disease Active 12/29/2018 ? Constipation Active 12/29/2018 ? Osteoarthritis of Knee Active 12/29/2018 ? Cough Active 12/29/2018 ? Inguinal Pain Active 02/07/2021 ? Procedures None recorded. Results Lab Results None recorded. Past Encounters 02/21/2021 Inguinal Pain; Hypertensive Disorder; Ed thomas of Lower Extremity Shahnaz Sanford, ELIZABETH-C: [address] [place] [address], Ph. 02/17/2021 Essential Hypertension; Medication Monit faisal Saavedra MD: [address] [place] [address], Ph. 02/15/2021 Inguinal Pain; Hypertensive Disorder; Ed thomas of Lower Extremity Shahnaz Sanford NP-C: [address] [place] [address], Ph. 02/13/2021 Inguinal Pain; Hypertensive Disorder Shahnaz Sanford NP-C: [address] [place] [address], Ph. 02/09/2021 Pain of Left Hip Joint; Disseminated Idi opathic Skeletal Hyperostosis; Essential Hypertension; Peripheral Vascular Disease; Obstructive Sleep Apnea Syndrome; Hypothyroidism; Anemia; Depressive Disorder; Medication Monitoring Marshall Saavedra MD: [address] [place] [address], Ph. 02/07/2021 Inguinal Pain; Hypertensive Disorder; Os teoarthritis of Knee; Edema of Lower Extremity; Depressive Disorder; Hypothyroidism; Mixed Hyperlipidemia; Anxiety; Peripheral Vascular Disease; Neuropathy; Restless Legs; Obstructive Sleep Apnea Syndrome Shahnaz Sanford NP-C: [address] [place] [address], Ph. Social History Tobacco Smoking Status Former Smoker (1 pack per day) Notes : now vapes, low dose nicotine Vaccine List Vaccine Type influenza, unspecified formulation 06/04/2017 pneumococcal conjugate PCV 13 02/08/2012 Plan of Care Reminders Provider Appointments None recorded. ? ? Lab None recorded. ? ? Referral None recorded. ? ? Procedures None recorded. ? ? Surgeries None recorded. ? ? Imaging None recorded. ? ? Vitals 02/21/2021 09:59AM Acute Rounding Visit Blood Pressure 127/73 mm[Hg] 02/15/2021 10:27AM Acute Rounding Visit Blood Pressure 142/67 mm[Hg] 02/13/2021 10:35AM Acute Rounding Visit Blood Pressure 130/71 mm[Hg] 02/09/2021 11:30AM Admitting H&P Blood Pressure 122/72 mm[Hg] 02/07/2021 09:04AM Initial Intake Note Blood Pressure 122/72 mm[Hg] 01/01/2019 02:58PM Admitting H&P Blood Pressure 110/68 mm[Hg] 12/29/2018 09:48AM Initial Intake Note Blood Pressure 131/69 mm[Hg] 10/24/2017 03:41PM Admitting H&P Weight Blood Pressure 305 lbs 119/59 mm[Hg]
--- OUTSIDE RECORDS SUMMARY | 2022-07-27 15:53 | XMS_ITS | Continuity of Care Document ---
:1955 Author Organization [facility] Address [address] [place] [address]- Care Team Providers Name Role Phone Zoila Khan MD Primary Care Physician En[place] [facility] [place] Date(s): 10/05/19 - 10/15/19 [facility] [address] [place] [address]- Attending Physician: Gely Jackson Admitting Physician: Gely Jackson Referring Physician: Gely Jackson Allergies, Adverse Reactions, Alerts Substance Reaction Severity Status venlafaxine Active Immunizations Given and Recorded Vaccine Date Status Refusal Reason Influenza Vaccine (oldterm)1 06/04/17 Given tetanus/diphtheria/pertussis, acel(Tdap) 04/25/15 Given Pneumococcal Vacc (oldterm)2 02/08/12 Given 1Admin Note: Per list from [id number] Note: Per info from PCP Medications atorvastatin [...] Tot. Refills 12, Maintenance, Heated Humidifier Dx REENTTA BHIRS, 03/03/15 14:32:05, Compound Start Date: 03/03/15 [...] dysfunction(Confirmed) Active Restless legs(Confirmed) Active 1Peripheral Neuropathic Wmfw4HEC 5.0, SMSWM, 04/21/07 Social History Social History Type Response Smoking Status Former smoker; Tobacco user in household: No; Type: Cigarettes; Number of years: 44; Started at age: 13; Stopped at age: 56; entered on: 10/04/15 Sex
--- OUTSIDE RECORDS SUMMARY | 2022-07-27 15:53 | XMS_ITS | Continuity of Care Document ---
:1955 Author Organization [facility] Address Unavailable , Care Team Providers Name Role Phone Zoila Khan MD Primary Care Physician Encounter [facility] [place] Date(s): 06/28/21 - 10/26/21 [facility] Attending Physician: Osvaldo Valdes MD Admitting Physician: Osvaldo Valdes MD Referring Physician: Osvaldo Valdes MD Allergies, Adverse Reactions, Alerts Substance Reaction Severity Status venlafaxine Active Immunizations Given and Recorded Vaccine Date Status Refusal Reason Influenza Vaccine (oldterm)1 06/04/17 Given tetanus/diphtheria/pertussis, acel(Tdap) 04/25/15 Given Pneumococcal Vacc (oldterm)2 02/08/12 Given 1Admin Note: Per list from [id number] Note: Per info from PCP Medications atorvastatin [...] dysfunction(Confirmed) Active Restless legs(Confirmed) Active 1Peripheral Neuropathic Eaua8HRG 5.0, SMSWM, 04/21/07 Social History Social History Type Response Smoking Status Former smoker; Tobacco user in household: No; Type: Cigarettes; Number of years: 46; Started at age: 13; Stopped at age: 56; entered on: 10/04/15 Sex
--- OUTSIDE RECORDS SUMMARY | 2022-07-27 15:54 | XMS_ITS ---
:1955 Author Care Team Providers Name Role Phone TARYN LONGORIA [facility] OTHER [phone] Allergies Code Code System Name Reaction Severity [...] Sanford, ELIZABETH-C: [address] [place] [address], Ph. 02/17/2021 Essential Hypertension; Medication Monit faisal Saavedra MD: [address] [place] [address], Ph. 02/15/2021 Inguinal Pain; Hypertensive Disorder; Ed thomas of Lower Extremity Shahnaz Sanford NP-C: [address] [place] [address], Ph. 02/13/2021 Inguinal Pain; Hypertensive Disorder Shahnaz Sanford NP-C: [address] [place] [address], Ph. 02/09/2021 Pain of Left Hip Joint; Disseminated Idi opathic Skeletal Hyperostosis; Essential Hypertension; Peripheral Vascular Disease; Obstructive Sleep Apnea Syndrome; Hypothyroidism; Anemia; Depressive Disorder; Medication Monitoring Marshall Saavedra MD: [address] [place] [id number], Ph. 02/07/2021 Inguinal Pain; Hypertensive Disorder; Os teoarthritis of Knee; Edema of Lower Extremity; Depressive Disorder; Hypothyroidism; Mixed Hyperlipidemia; Anxiety; Peripheral Vascular Disease; Neuropathy; Restless Legs; Obstructive Sleep Apnea Syndrome Shahnaz Sanford NP-C: [address] [place] [address], Ph. Social History Tobacco Smoking Status Former [...]
[2022-07-27 16:05] VITALS: BP 122/78; PULSE 71; RESP 15; TEMP 36.2; O2SAT 93
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
[2022-07-27 18:00] VITALS: BP 121/66; PULSE 75; RESP 14; TEMP 36.6; O2SAT 93
[2022-07-27] MEDS: traZODone HCL 100 MG TABLET 200 MG PO (22:57)
[2022-07-27] MEDS: Atorvastatin Calcium 40 MG TABLET PO (22:57)
[2022-07-27] MEDS: TiZANidine HCL 4 MG TABLET PO (22:58)
[2022-07-28 04:07] VITALS: BMI 40.4
[2022-07-28 08:08] LABS: Alanine Aminotransferase 35 U/L (0-40); Albumin Level 4.3 g/dL (3.5-5.0); Alkaline Phosphatase 89 U/L (39-117); Anion Gap 15 (12-20); Aspartate Amino Transferase 29 U/L (5-37); Bilirubin Total 0.7 mg/dL (0.0-1.0); Blood Urea Nitrogen 18 mg/dL (9-16); Calcium 9.5 mg/dL (8.4-10.2); Carbon Dioxide 25 mmol/L (22-29); Chloride 103 mmol/L (96-108); Cholesterol 139 mg/dL; Creatinine Clr Calc Pharmacy 83.7; Estimated Glomerular Filt Rate > 60; Glucose Fasting 109 mg/dL (60-99); HDL Cholesterol 32 mg/dL; LDL Cholesterol Calculated 73 mg/dl; Potassium 4.3 mmol/L (3.3-5.1); Sodium 139 mmol/L (135-145); Total Protein 7.3 g/dL (6.5-8.0); Triglycerides 174 mg/dL
[2022-07-28 08:20] VITALS: BP 114/68; PULSE 70; RESP 18; TEMP 35.9; O2SAT 94
[2022-07-28] MEDS: Levothyroxine Sodium 112 MCG TABLET PO (11:21)
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
[2022-07-28] MEDS: traMADoL HCL 50 MG TABLET PO ×2 (14:27→21:39)
[2022-07-28] MEDS: Escitalopram Oxalate 5 MG TABLET PO (14:27)
[2022-07-28] MEDS: Multivitamin TABLET 1 TAB PO (14:27)
[2022-07-28] MEDS: Cholecalciferol (Vitamin D3) 25 MCG TABLET 50 MCG PO (14:27)
[2022-07-28] MEDS: Losartan Potassium 50 MG TABLET PO (14:28)
--- NOTE | 2022-07-28 16:06 | HO.PM.IMCN ---
History of Present Illness Data of Consult Service Date: 07/28/22 Requesting physician: Ortiz Bermudez Primary Care Provider: Zoila Khan MD [facility] Reason for consult: medical H&P 67-year-old male with history of obstructive sleep apnea, bilateral lower extremity edema, peripheral neuropathy, hypothyroidism, hypertension, GERD, chronic low back pain, and osteoarthritis of multiple areas admitted to Psychiatry with consult placed for medical H and P. Only complaint today is fatigue. He ambulates with a cane at baseline secondary to his osteoarthritis of the right hip. Review of Systems Review of Systems: General: No fevers, malaise, unintentional weight loss HEENT: No blurred vision, diplopia. Cardiovascular: No chest pain, palpitations, or leg edema Respiratory: No shortness of breath, wheezing, cough GI: No abdominal pain, nausea, vomiting, diarrhea, constipation, melena, hematochezia : No dysuria, hematuria, increased urinary frequency, decreased urinary output MSK: +back pain, +bilat knee pain, +hip pain. No myalgia Neuro: No headaches, weakness, paresthesias Skin: No rashes or lesions [facility] Medical History (Updated 07/28/22 @ 16:11 by JORGITO Carlos) Bilateral lower extremity edema Chronic low back pain Depression GERD (gastroesophageal reflux disease) Hypothyroidism Obstructive sleep apnea Osteoarthritis involving multiple joints on both sides of body Peripheral neuropathy Family History Mother HTN (hypertension) Social History Household Members: Spouse Housing: House Do you presently have visiting nurse or other home services: No Patient Tobacco Use Status: Former Tobacco user Tobacco use type: Cigarette Smoked in Last 30 Days: No e-Cigarette/Vaping Use: Currently Using Frequency of e-Cigarette/Vaping Use: no nicotine in product Patient Interested in Nicotine Replacement: No Patient Given Instructions on How to Stop Smoking: No Second Hand Smoke Exposure: No Use of substances other than those prescribed or required for medical reasons: No Currently Displaying Signs/Symptoms of Drug Intoxication Withdrawal: No Any prior treatment program specific to substance use: No Have you been hit, kicked, punched, or otherwise hurt by someone within the past year? If so, by whom?: No Do you feel safe in your current relationship?: Yes Is there a partner from a previous relationship who is making you feel unsafe now?: No Are you made to feel afraid or neglected: No Spiritual Healthcare Practices: n/a Taoist Healthcare Practices: n/a Cultural Healthcare Practices: n/a Advance Directives: No Advance Directives Information Provided: No Do you have thoughts of harming others: None Do you have a plan to hurt others: No Plan Recently lost weight without trying: No How much weight loss: Not applicable Eating poorly because of decreased appetite: No Nutrition screen score: 0 Nutrition Risks: Binging/Purging Poor oral hygiene: Yes (brushes teeth every other day.) Meds Allergies Allergy/AdvReac Type Severity Reaction Status Date / Time venlafaxine [From Effexor] AdvReac Agitated Verified 07/27/22 18:47 Active Medications: Current Medications Acetaminophen (Acetaminophen 325 Mg Tablet) 650 mg PO Q6H PRN PRN Reason: Headache/Pain Mild Scale (1-3) Al Hydroxide/Mg Hydroxide (Magnesium Hydrox/Alum Hydrox 30 Ml Oral.Susp) 30 ml PO Q6H PRN PRN Reason: Heartburn/Nausea Atorvastatin Calcium (Atorvastatin Calcium 40 Mg Tablet) 40 mg PO BEDTIME [facility] Escitalopram Oxalate (Escitalopram Oxalate 5 Mg Tablet) 5 mg PO DAILY [facility] Last Admin: 07/28/22 14:27 Dose: 5 mg Furosemide (Furosemide 40 Mg Tablet) 40 mg PO DAILY@1700 [facility]; Protocol Hydroxyzine HCl (Hydroxyzine Hcl 25 Mg Tablet) 25 mg PO Q6H PRN PRN Reason: Anxiety Levothyroxine Sodium (Levothyroxine Sodium 112 Mcg Tablet) 112 mcg PO DAILY@0600 [facility] Last Admin: 07/28/22 11:21 Dose: 112 mcg Losartan Potassium (Losartan Potassium 50 Mg Tablet) 50 mg PO DAILY [facility]; Protocol Last Admin: 07/28/22 14:28 Dose: 50 mg Losartan Potassium (Losartan Potassium 25 Mg Tablet) 25 mg PO BEDTIME [facility]; Protocol Magnesium Hydroxide (Milk Of Magnesia 30 Ml Oral.Susp) 30 ml PO DAILY PRN PRN Reason: Constipation Multivitamins/Vitamin C (Multivitamin Tablet) 1 tab PO DAILY [facility] Last Admin: 07/28/22 14:27 Dose: 1 tab Omeprazole (Omeprazole 20 Mg Capsule.Dr) 20 mg PO DAILY@0630 [facility] Sertraline HCl (Sertraline Hcl 50 Mg Tablet) 50 mg PO DAILY [facility] Last Admin: 07/28/22 12:30 Dose: Not Given Tizanidine HCl (Tizanidine Hcl 4 Mg Tablet) 4 mg PO BEDTIME [facility] Tramadol HCl (Tramadol Hcl 50 Mg Tablet) 50 mg PO BID PRN PRN Reason: Pain, Moderate (Pain Scale 4-6 Last Admin: 07/28/22 14:27 Dose: 50 mg Trazodone HCl (Trazodone Hcl 100 Mg Tablet) 200 mg PO BEDTIME [facility] Triamcinolone Acetonide (Triamcinolone Acet 0.1 % Cream 15 Gm Tube) 1 appl TOPICAL BID [facility]; Protocol Vitamin D (Cholecalciferol (Vitamin D3) 25 Mcg Tablet) 50 mcg PO DAILY [facility] Last Admin: 07/28/22 14:27 Dose: 50 mcg Home Medications Medication Instructions Recorded Confirmed Last Taken Type Multi-Daily W/Minerals 1 tab PO DAILY 07/27/22 07/27/22 Unknown History Vitamin D3 2,000 units PO DAILY 07/27/22 07/27/22 Unknown History atorvastatin 40 mg PO BEDTIME 07/27/22 07/27/22 Unknown History coenzyme Q10 200 mg capsule (Co 200 mg PO DAILY 07/27/22 07/27/22 Unknown History Q-10) furosemide 40 mg tablet (Lasix) 30 mg PO DAILY 07/27/22 07/27/22 Unknown History krill oil 1,000 mg PO DAILY 07/27/22 07/27/22 Unknown History levothyroxine 125 mcg PO DAILY 07/27/22 07/27/22 Unknown History losartan 25 mg PO BEDTIME 07/27/22 07/27/22 Unknown History losartan 50 mg PO DAILY 07/27/22 07/27/22 Unknown History pantoprazole 20 mg PO DAILY 07/27/22 07/27/22 Unknown History tizanidine 4 mg PO DAILY 07/27/22 07/27/22 Unknown History tramadol 50 mg PO DAILY PRN Pain, Severe 07/27/22 07/27/22 Unknown History trazodone 200 mg PO BEDTIME 07/27/22 07/27/22 Unknown History triamcinolone acetonide topical BID 07/27/22 Unknown History Zoloft 50 mg PO DAILY 07/28/22 07/28/22 Unknown History Physical Exam Vital Signs and Narrative: Vital Signs: Last Vital Signs Temp 97.8 F 07/27/22 18:00 Pulse 75 07/27/22 18:00 Resp 14 07/27/22 18:00 BP 121/66 07/27/22 18:00 Pulse Ox 93 07/27/22 18:00 O2 Del Method 07/27/22 18:00 BMI result Body Mass Index 40.4 Constitutional - Awake and Alert, No apparent distress Eyes - PERRLA, EOMI Cardiovascular - S1S2, RRR, No edema Respiratory - Normal lung expansion, Normal respiratory effort, No respiratory distress, CTA bilaterally Gastrointestinal - NT / ND; +BS; No rebound or guarding Extremities - no calf tenderness bilaterally, no swelling Musculoskeletal - Normal inspection, normal ROM Skin - Warm/Dry Neurological - Alert & oriented x3, CN II-XII in tact, 5/5 strength BUE and BLE Psychological - Appropriate affect Results Labs CBC and Chem 7: 07/28/22 07:19 Labs: Laboratory Results - last 24 hr 07/28/22 07/28/22 07:19 07:19 Anion Gap 15 Estim Creat Clear Calc 83.7 Estimated GFR > 60 Fasting Glucose 109 H Calcium 9.5 Total Bilirubin 0.7 AST 29 ALT 35 Alkaline Phosphatase 89 Total Protein 7.3 Albumin 4.3 Triglycerides 174 Cholesterol 139 LDL Cholesterol, Calc 73 HDL Cholesterol 32 TSH 2.00 Assessment and Plan (1) Depression: Status: Acute Plan 67-year-old male with history of obstructive sleep apnea, bilateral lower extremity edema, peripheral neuropathy, hypothyroidism, hypertension, GERD, chronic low back pain, and osteoarthritis of multiple areas admitted to Psychiatry with consult placed for medical H and P. #Depression -plan per psychiatry #RENETTA -Recommend cpap usage managed by RT -BLE edema -continue lasix #hypothyroidism -TSH 2.00 -continue levothyroxine #HTN- reasonably controlled -continue losartan, lasix #HLD -Total chol 139, ldl 73 -continue statin and co-q 10 #GERD -continue ppi Thank you for allowing me to participate in this consult. Signing off at this time. Please do not hesitate to call for further questions.
[2022-07-28] MEDS: Furosemide 40 MG TABLET PO (16:41)
[2022-07-28 18:00] VITALS: BP 127/61; PULSE 62; RESP 12; TEMP 36.9; O2SAT 62
[2022-07-28] MEDS: hydrOXYzine HCL 25 MG TABLET PO (21:46)
--- NOTE | 2022-07-28 21:50 | PC.NURSE ---
on the start of med pass stopped by pt to administer his 2100 meds. pt stated I do not want my meds until 2300. at 2130 pt rang call guadalupe. he is upset and angry. he states that he has had back pain for an hour and no one has done anything about it. pt has fists clenched pressed into the mattress. he states that he has 9/10 back pain which he describes throughout his back. pt does not want to discuss the situation. he states he will be talking to a pt advocate. pt medicated with tramadol 50mg po/ atarax 50 mg po. plan 1. scheduled 2100 meds at [address] on cpap at 2330
[2022-07-28] MEDS: TiZANidine HCL 4 MG TABLET PO (22:57)
[2022-07-28] MEDS: Losartan Potassium 25 MG TABLET PO (22:58)
[2022-07-28] MEDS: traZODone HCL 100 MG TABLET 200 MG PO (22:58)
[2022-07-28] MEDS: Atorvastatin Calcium 40 MG TABLET PO (22:59)
[2022-07-29 06:00] VITALS: BP 127/69; PULSE 73; RESP 17; TEMP 35.8; O2SAT 92
[2022-07-29] MEDS: Levothyroxine Sodium 112 MCG TABLET PO (06:00)
[2022-07-29] MEDS: Cholecalciferol (Vitamin D3) 25 MCG TABLET 50 MCG PO (08:36)
[2022-07-29] MEDS: Escitalopram Oxalate 5 MG TABLET PO (08:36)
[2022-07-29] MEDS: Multivitamin TABLET 1 TAB PO (08:36)
[2022-07-29] MEDS: Losartan Potassium 50 MG TABLET PO (08:36)
[2022-07-29] MEDS: Omeprazole 20 MG CAPSULE.DR PO (14:39)
[2022-07-29] MEDS: traMADoL HCL 50 MG TABLET PO (14:43)
[2022-07-29] MEDS: Furosemide 40 MG TABLET PO (16:37)
--- NOTE | 2022-07-29 17:03 | P.PNPSI_ITS ---
Subjective Subjective Date of Service: 07/29/22 Reason For Visit: unspecified depressive disorder Interim History: Patient discussed. Nursing report that patient was noted to be irritable y esterday. He was upset about his back pain not being addressed in time and had clenched fists on the bed last night. He was redirectable. No reports of active SI. When this fiction writer went to talk to patient, patient was in deep sleep. He was snoring and would not wake for interview. Medication Compliance: Yes Side effects from medications: No Mental Status Exam Mental Status Exam Patient Appearance: Appropriate Patient Orientation: Person, Place, Time and Situation Level of Consciousness: Awake, Appropriate and Alert Patient Behavior: Appropriate, Cooperative and Good Eye Contact Behavior Comments: Walks with a cane. Mood Description: Constricted, Depressed and Sad Affect Description: Depressed and Sad Patient Cognition Impaired: No Ability to Follow Directions: Excellent Speech Pattern: Clear Memory Description: Intact Hallucinations: None Delusions: Not Present Thought Process: Intact Depressive Symptoms: Increased Irritability, Hopelessness and Unhappiness Abnormal Motor Activity Signs and Symptoms: Aggression Judgement: Fair Diagnostics Vital Signs (24Hr): Vital Signs - 24 hr 07/28/22 18:00 07/29/22 06:00 Temperature 98.5 F 96.5 F L Pulse Rate 62 73 Respiratory Rate 12 17 Blood Pressure 127/61 127/69 Pulse Oximetry 62 L 92 Oxygen Delivery Method Room Air Room Air BMI result Body Mass Index 40.4 Labs Results: 07/28/22 07:19 Labs: Laboratory Results - last 48 hr 07/28/22 07/28/22 07:19 07:19 Sodium 139 Potassium 4.3 Chloride 103 Carbon Dioxide 25 Anion Gap 15 BUN 18 H Creatinine 1.12 Estim Creat Clear Calc 83.7 Estimated GFR > 60 Fasting Glucose 109 H Calcium 9.5 Total Bilirubin 0.7 AST 29 ALT 35 Alkaline Phosphatase 89 Total Protein 7.3 Albumin 4.3 Triglycerides 174 Cholesterol 139 LDL Cholesterol, Calc 73 HDL Cholesterol 32 TSH 2.00 Medications Medications Current Medications Acetaminophen (Acetaminophen 325 Mg Tablet) 650 mg PO Q6H PRN PRN Reason: Headache/Pain Mild Scale (1-3) Al Hydroxide/Mg Hydroxide (Magnesium Hydrox/Alum Hydrox 30 Ml Oral.Susp) 30 ml PO Q6H PRN PRN Reason: Heartburn/Nausea Atorvastatin Calcium (Atorvastatin Calcium 40 Mg Tablet) 40 mg PO BEDTIME [facility] Last Admin: 07/28/22 22:59 Dose: 40 mg Escitalopram Oxalate (Escitalopram Oxalate 5 Mg Tablet) 5 mg PO DAILY [facility] Last Admin: 07/29/22 08:36 Dose: 5 mg Furosemide (Furosemide 40 Mg Tablet) 40 mg PO DAILY@1700 [facility]; Protocol Last Admin: 07/29/22 16:37 Dose: 40 mg Hydroxyzine HCl (Hydroxyzine Hcl 25 Mg Tablet) 25 mg PO Q6H PRN PRN Reason: Anxiety Last Admin: 07/28/22 21:46 Dose: 25 mg Levothyroxine Sodium (Levothyroxine Sodium 112 Mcg Tablet) 112 mcg PO JENNIFER LY@0600 [facility] Last Admin: 07/29/22 06:00 Dose: 112 mcg Losartan Potassium (Losartan Potassium 50 Mg Tablet) 50 mg PO DAILY [facility]; Protocol Last Admin: 07/29/22 08:36 Dose: 50 mg Losartan Potassium (Losartan Potassium 25 Mg Tablet) 25 mg PO BEDTIME [facility]; Protocol Last Admin: 07/28/22 22:58 Dose: 25 mg Magnesium Hydroxide (Milk Of Magnesia 30 Ml Oral.Susp) 30 ml PO DAILY PRN PRN Reason: Constipation Multivitamins/Vitamin C (Multivitamin Tablet) 1 tab PO DAILY [facility] Last Admin: 07/29/22 08:36 Dose: 1 tab Olanzapine (Olanzapine Odt 10 Mg Tab.Rapdis) 5 mg TRANSLINGU BID PRN PRN Reason: agitation Omeprazole (Omeprazole 20 Mg Capsule.Dr) 20 mg PO DAILY@0630 [facility] Last Admin: 07/29/22 14:39 Dose: 20 mg Tizanidine HCl (Tizanidine Hcl 4 Mg Tablet) 4 mg PO BEDTIME [facility] Last Admin: 07/28/22 22:57 Dose: 4 mg Tramadol HCl (Tramadol Hcl 50 Mg Tablet) 50 mg PO BID PRN PRN Reason: Pain, Moderate (Pain Scale 4-6 Last Admin: 07/29/22 14:43 Dose: 50 mg Trazodone HCl (Trazodone Hcl 100 Mg Tablet) 200 mg PO BEDTIME [facility] Last Admin: 07/28/22 22:58 Dose: 200 mg Triamcinolone Acetonide (Triamcinolone Acet 0.1 % Cream 15 Gm Tube) 1 appl TOPICAL BID [facility]; Protocol Last Admin: 07/29/22 14:00 Dose: Not Given Vitamin D (Cholecalciferol (Vitamin D3) 25 Mcg Tablet) 50 mcg PO DAILY [facility] Last Admin: 07/29/22 08:36 Dose: 50 mcg Allergies Allergies Allergy/AdvReac Type Severity Reaction Status Date / Time venlafaxine [From Effexor] AdvReac Agitated Verified 07/27/22 18:47 Assessment & Plan Assessment & Plan (1) Depression, major, severe recurrence: Status: Acute Code(s): F33.2 - Major depressive disorder, recurrent severe without psychotic features Assessment and Plan: 67 year old admitted with history of depression admitted for suicidal ideation with plan to hang himself in the context of conflict with , chronic pain and medical comorbidities and untreated depression. Plan - Admit to Geripsychiatry - Collaterals. Clarify whether he owns firearms. - 15 minute checks. - Patient agrees to trial of Lexapro. Will start Lexapro 5 mg. - Medical evaluation pending. - Groups and milieu therapy. - DC planning. 07/29: Continue current plan. I spent minutes with the patient and/or on the patient floor today, greater than?50% of which was spent counseling/coordinating care. Reason for contiued inpatient stay Substantial Risk for: harm to self
[2022-07-29 18:00] VITALS: BP 127/60; PULSE 66; RESP 17; TEMP 35.8; O2SAT 94
[2022-07-29] MEDS: TiZANidine HCL 4 MG TABLET PO (20:43)
[2022-07-29] MEDS: traZODone HCL 100 MG TABLET 200 MG PO (20:43)
[2022-07-29] MEDS: Atorvastatin Calcium 40 MG TABLET PO (20:43)
[2022-07-29] MEDS: Losartan Potassium 25 MG TABLET PO (20:43)
[2022-07-29] MEDS: Triamcinolone Acet 0.1 % Cream 15 GM TUBE 1 APPL TOPICAL (20:49)
[2022-07-30] MEDS: Omeprazole 20 MG CAPSULE.DR PO (06:03)
[2022-07-30] MEDS: Levothyroxine Sodium 112 MCG TABLET PO (06:03)
[2022-07-30 07:45] VITALS: BP 121/70; PULSE 60; RESP 16; TEMP 36.1; O2SAT 95
[2022-07-30] MEDS: Escitalopram Oxalate 5 MG TABLET PO (08:26)
[2022-07-30] MEDS: Losartan Potassium 50 MG TABLET PO (08:26)
[2022-07-30] MEDS: Multivitamin TABLET 1 TAB PO (08:26)
[2022-07-30] MEDS: Cholecalciferol (Vitamin D3) 25 MCG TABLET 50 MCG PO (08:27)
[2022-07-30] MEDS: Triamcinolone Acet 0.1 % Cream 15 GM TUBE 1 APPL TOPICAL (08:29)
--- NOTE | 2022-07-30 13:05 | P.PNPSI_ITS ---
Subjective Subjective Date of Service: 07/30/22 Reason For Visit: unspecified depressive disorder Subjective Notes: Conditional Voluntary Interim History: The nursing staff reported the patient slept poorly due to the snoring of his roommate. On interview the patient reports depression and anxiety and currently he is on Lexapro. So far he denies side effects. Medication Compliance: Yes Side effects from medications: No Attending Groups: Intermittent Review of Systems Acute medical concerns: No Medical Review of Systems: unchanged Mental Status Exam Mental Status Exam Patient Appearance: Well Grooomed and Appropriate Patient Orientation: Person, Place and Situation Level of Consciousness: Awake and Appropriate Patient Behavior: Guarded and Passive Mood Description: Calm Affect Description: Constricted Patient Cognition Impaired: Yes Ability to Follow Directions: Good Speech Pattern: Clear Hallucinations: None Delusions: Not Present Thought Process: Distracted and Evasive Thought Content: positive for Circumstantial Judgement: Fair Diagnostics Vital Signs (24Hr): Vital Signs - 24 hr 07/29/22 18:00 Temperature 96.5 F L Pulse Rate 66 Respiratory Rate 17 Blood Pressure 127/60 Pulse Oximetry 94 Oxygen Delivery Method Room Air BMI result Body Mass Index 40.4 Labs Results: 07/28/22 07:19 Medications Medications Current Medications Acetaminophen (Acetaminophen 325 Mg Tablet) 650 mg PO Q6H PRN PRN Reason: Headache/Pain Mild Scale (1-3) Al Hydroxide/Mg Hydroxide (Magnesium Hydrox/Alum Hydrox 30 Ml Oral.Susp) 30 ml PO Q6H PRN PRN Reason: Heartburn/Nausea Atorvastatin Calcium (Atorvastatin Calcium 40 Mg Tablet) 40 mg PO BEDTIME [facility] Last Admin: 07/29/22 20:43 Dose: 40 mg Escitalopram Oxalate (Escitalopram Oxalate 5 Mg Tablet) 5 mg PO DAILY [facility] Last Admin: 07/30/22 08:26 Dose: 5 mg Furosemide (Furosemide 40 Mg Tablet) 40 mg PO DAILY@1700 [facility]; Protocol Last Admin: 07/29/22 16:37 Dose: 40 mg Hydroxyzine HCl (Hydroxyzine Hcl 25 Mg Tablet) 25 mg PO Q6H PRN PRN Reason: Anxiety Last Admin: 07/28/22 21:46 Dose: 25 mg Levothyroxine Sodium (Levothyroxine Sodium 112 Mcg Tablet) 112 mcg PO DAILY@0600 [facility] Last Admin: 07/30/22 06:03 Dose: 112 mcg Losartan Potassium (Losartan Potassium 50 Mg Tablet) 50 mg PO DAILY [facility]; Protocol Last Admin: 07/30/22 08:26 Dose: 50 mg Losartan Potassium (Losartan Potassium 25 Mg Tablet) 25 mg PO BEDTIME [facility]; Protocol Last Admin: 07/29/22 20:43 Dose: 25 mg Magnesium Hydroxide (Milk Of Magnesia 30 Ml Oral.Susp) 30 ml PO DAILY PRN PRN Reason: Constipation Multivitamins/Vitamin C (Multivitamin Tablet) 1 tab PO DAILY [facility] Last Admin: 07/30/22 08:26 Dose: 1 tab Olanzapine (Olanzapine Odt 10 Mg Tab.Rapdis) 5 mg TRANSLINGU BID PRN PRN Reason: agitation Omeprazole (Omeprazole 20 Mg Capsule.Dr) 20 mg PO DAILY@0630 [facility] Last Admin: 07/30/22 06:03 Dose: 20 mg Tizanidine HCl (Tizanidine Hcl 4 Mg Tablet) 4 mg PO BEDTIME [facility] Last Admin: 07/29/22 20:43 Dose: 4 mg Tramadol HCl (Tramadol Hcl 50 Mg Tablet) 50 mg PO BID PRN PRN Reason: Pain, Moderate (Pain Scale 4-6 Last Admin: 07/29/22 14:43 Dose: 50 mg Trazodone HCl (Trazodone Hcl 100 Mg Tablet) 200 mg PO BEDTIME [facility] Last Admin: 07/29/22 20:43 Dose: 200 mg Triamcinolone Acetonide (Triamcinolone Acet 0.1 % Cream 15 Gm Tube) 1 appl TOPICAL BID [facility]; Protocol Last Admin: 07/30/22 08:29 Dose: 1 appl Vitamin D (Cholecalciferol (Vitamin D3) 25 Mcg Tablet) 50 mcg PO DAILY [facility] Last Admin: 07/30/22 08:27 Dose: 50 mcg Allergies Allergies Allergy/AdvReac Type Severity Reaction Status Date / Time venlafaxine [From Effexor] AdvReac Agitated Verified 07/27/22 18:47 Assessment & Plan Assessment & Plan (1) Depression, major, severe recurrence: Status: Acute Code(s): F33.2 - Major depressive disorder, recurrent severe without psychotic features Plan The patient is an elderly male with a long history of depression who was admitted into the hospital for suicidality and increase irritability with the change of medications, also his nurse practitioner who prescribed him in the community reported delirium. Plan 1. Gather collateral information from the family. 2. We will continue with Prozac 20 mg p.o. q.a.m.. We have contact his nurse practitioner and he provide more information. 3. Continue with Ativan p.r.n.. 4. Increase Trazodone up to 200 mg po qhs as per the community. 5. Continue medical workup I spent ___20___ minutes with the patient and/or on the patient floor today, greater than?50% of which was spent counseling/coordinating care. Reason for contiued inpatient stay Substantial Risk for: inability to function, rapid decompensation and med/psych decompensation
[2022-07-30] MEDS: Furosemide 40 MG TABLET PO (17:12)
[2022-07-30 20:00] VITALS: BP 151/65; PULSE 85; RESP 18; TEMP 35.8; O2SAT 96
[2022-07-30] MEDS: TiZANidine HCL 4 MG TABLET PO (22:15)
[2022-07-30] MEDS: Atorvastatin Calcium 40 MG TABLET PO (22:15)
[2022-07-30] MEDS: traZODone HCL 100 MG TABLET 200 MG PO (22:15)
[2022-07-30] MEDS: Losartan Potassium 25 MG TABLET PO (22:16)
[2022-07-31] MEDS: Levothyroxine Sodium 112 MCG TABLET PO (05:53)
[2022-07-31 08:15] VITALS: BP 131/66; PULSE 73; RESP 16; TEMP 36.4; O2SAT 98
[2022-07-31] MEDS: Losartan Potassium 50 MG TABLET PO (08:16)
[2022-07-31] MEDS: Cholecalciferol (Vitamin D3) 25 MCG TABLET 50 MCG PO (08:16)
[2022-07-31] MEDS: Escitalopram Oxalate 5 MG TABLET PO (08:17)
[2022-07-31] MEDS: Omeprazole 20 MG CAPSULE.DR PO (08:17)
[2022-07-31] MEDS: Multivitamin TABLET 1 TAB PO (08:17)
[2022-07-31] MEDS: Triamcinolone Acet 0.1 % Cream 15 GM TUBE 1 APPL TOPICAL ×2 (08:17→20:59)
--- NOTE | 2022-07-31 11:54 | P.PNPSI_ITS ---
Subjective Subjective Date of Service: 07/31/22 Reason For Visit: unspecified depressive disorder Subjective Notes: Conditional Voluntary Interim History: The nursing staff reported the patient has been compliant with treatment, he has been very pleasant no angry outbursts described on admission. He is on one-to-one observation during the night due to his CPAP machine. The adoption social worker reported that the daughter wants some update regarding his condition. Apparently he had been having marital conflicts for several months. 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 So far no chronic pain. On interview the patient denies new symptoms he states that he feels anxious and dysphoric but no active suicidal ideation. He reports feeling better with Lexapro than Zoloft that made him irritable. Mental Status Exam Mental Status Exam Patient Appearance: Well Grooomed Patient Orientation: Person and Situation Level of Consciousness: Awake and Appropriate Patient Behavior: Guarded and Passive Mood Description: Calm Affect Description: Constricted Patient Cognition Impaired: Yes Ability to Follow Directions: Fair Speech Pattern: Clear Hallucinations: None Delusions: Not Present Thought Process: Evasive Thought Content: positive for Circumstantial Judgement: Fair Diagnostics Vital Signs (24Hr): Vital Signs - 24 hr 07/30/22 20:00 07/31/22 08:15 Temperature 96.5 F L 97.6 F Pulse Rate 85 73 Respiratory Rate 18 16 Blood Pressure 151/65 H 131/66 Pulse Oximetry 96 98 Oxygen Delivery Method Room Air Room Air BMI result Body Mass Index 40.4 Labs Results: 07/28/22 07:19 Medications Medications Current Medications Acetaminophen (Acetaminophen 325 Mg Tablet) 650 mg PO Q6H PRN PRN Reason: Headache/Pain Mild Scale (1-3) Al Hydroxide/Mg Hydroxide (Magnesium Hydrox/Alum Hydrox 30 Ml Oral.Susp) 30 ml PO Q6H PRN PRN Reason: Heartburn/Nausea Atorvastatin Calcium (Atorvastatin Calcium 40 Mg Tablet) 40 mg PO BEDTIME [facility] Last Admin: 07/30/22 22:15 Dose: 40 mg Escitalopram Oxalate (Escitalopram Oxalate 5 Mg Tablet) 5 mg PO DAILY [facility] Last Admin: 07/31/22 08:17 Dose: 5 mg Furosemide (Furosemide 40 Mg Tablet) 40 mg PO DAILY@1700 [facility]; Protocol Last Admin: 07/30/22 17:12 Dose: 40 mg Hydroxyzine HCl (Hydroxyzine Hcl 25 Mg Tablet) 25 mg PO Q6H PRN PRN Reason: Anxiety Last Admin: 07/28/22 21:46 Dose: 25 mg Levothyroxine Sodium (Levothyroxine Sodium 112 Mcg Tablet) 112 mcg PO DAILY@0600 [facility] Last Admin: 07/31/22 05:53 Dose: 112 mcg Losartan Potassium (Losartan Potassium 50 Mg Tablet) 50 mg PO DAILY [facility]; Protocol Last Admin: 07/31/22 08:16 Dose: 50 mg Losartan Potassium (Losartan Potassium 25 Mg Tablet) 25 mg PO BEDTIME [facility]; Protocol Last Admin: 07/30/22 22:16 Dose: 25 mg Magnesium Hydroxide (Milk Of Magnesia 30 Ml Oral.Susp) 30 ml PO DAILY PRN PRN Reason: Constipation Multivitamins/Vitamin C (Multivitamin Tablet) 1 tab PO DAILY [facility] Last Admin: 07/31/22 08:17 Dose: 1 tab Olanzapine (Olanzapine Odt 10 Mg Tab.Rapdis) 5 mg TRANSLINGU BID PRN PRN Reason: agitation Omeprazole (Omeprazole 20 Mg Capsule.Dr) 20 mg PO DAILY@0630 [facility] Last Admin: 07/31/22 08:17 Dose: 20 mg Tizanidine HCl (Tizanidine Hcl 4 Mg Tablet) 4 mg PO BEDTIME [facility] Last Admin: 07/30/22 22:15 Dose: 4 mg Tramadol HCl (Tramadol Hcl 50 Mg Tablet) 50 mg PO BID PRN PRN Reason: Pain, Moderate (Pain Scale 4-6 Last Admin: 07/29/22 14:43 Dose: 50 mg Trazodone HCl (Trazodone Hcl 100 Mg Tablet) 200 mg PO BEDTIME [facility] Last Admin: 07/30/22 22:15 Dose: 200 mg Triamcinolone Acetonide (Triamcinolone Acet 0.1 % Cream 15 Gm Tube) 1 appl TOPICAL BID [facility]; Protocol Last Admin: 07/31/22 08:17 Dose: 1 appl Vitamin D (Cholecalciferol (Vitamin D3) 25 Mcg Tablet) 50 mcg PO DAILY [facility] Last Admin: 07/31/22 08:16 Dose: 50 mcg Allergies Allergies Allergy/AdvReac Type Severity Reaction Status Date / Time venlafaxine [From Effexor] AdvReac Agitated Verified 07/27/22 18:47 Assessment & Plan Assessment & Plan (1) Depression, major, severe recurrence: Status: Acute Code(s): F33.2 - Major depressive disorder, recurrent severe without psychotic features Plan The patient is an elderly male with a long history of depression who was admitted into the hospital for suicidality and increase irritability with the change of medications, also his nurse practitioner who prescribed him in the community reported delirium. Plan 1. Gather collateral information from the family. 2. We will continue with antidepressants 3. Continue with Ativan p.r.n.. 4. Increase Trazodone up to 200 mg po qhs as per the community. 5. Continue medical workup I spent ___20___ minutes with the patient and/or on the patient floor today, greater than?50% of which was spent counseling/coordinating care. Reason for contiued inpatient stay Substantial Risk for: inability to function, rapid decompensation and med/psych decompensation
[2022-07-31] MEDS: traMADoL HCL 50 MG TABLET PO (14:23)
[2022-07-31] MEDS: Furosemide 40 MG TABLET PO (16:53)
[2022-07-31 18:00] VITALS: BP 120/57; PULSE 73; RESP 16; TEMP 36.4; O2SAT 93
[2022-07-31] MEDS: Atorvastatin Calcium 40 MG TABLET PO (20:51)
[2022-07-31] MEDS: Losartan Potassium 25 MG TABLET PO (20:52)
[2022-07-31] MEDS: TiZANidine HCL 4 MG TABLET PO (20:53)
[2022-07-31] MEDS: traZODone HCL 100 MG TABLET 200 MG PO (20:54)
[2022-08-01] MEDS: Levothyroxine Sodium 112 MCG TABLET PO (06:49)
[2022-08-01] MEDS: Omeprazole 20 MG CAPSULE.DR PO (06:49)
[2022-08-01 07:30] VITALS: BP 132/68; PULSE 77; RESP 18; TEMP 36.3; O2SAT 94
[2022-08-01] MEDS: Cholecalciferol (Vitamin D3) 25 MCG TABLET 50 MCG PO (10:03)
[2022-08-01] MEDS: Losartan Potassium 50 MG TABLET PO (10:03)
[2022-08-01] MEDS: Multivitamin TABLET 1 TAB PO (10:08)
[2022-08-01] MEDS: Triamcinolone Acet 0.1 % Cream 15 GM TUBE 1 APPL TOPICAL (10:45)
[2022-08-01] MEDS: traMADoL HCL 50 MG TABLET PO (12:36)
[2022-08-01] MEDS: Escitalopram Oxalate 5 MG TABLET PO (13:17)
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
[2022-08-01] MEDS: Furosemide 40 MG TABLET PO (16:45)
[2022-08-01 18:00] VITALS: BP 136/63; PULSE 77; RESP 18; TEMP 36.4; O2SAT 94
[2022-08-01] MEDS: traZODone HCL 100 MG TABLET 200 MG PO (22:25)
[2022-08-01] MEDS: TiZANidine HCL 4 MG TABLET PO (22:26)
[2022-08-01] MEDS: Atorvastatin Calcium 40 MG TABLET PO (22:26)
[2022-08-01] MEDS: Losartan Potassium 25 MG TABLET PO (22:26)
[2022-08-02 06:00] VITALS: BP 136/92; PULSE 82; RESP 19; TEMP 35.8; O2SAT 96
[2022-08-02] MEDS: Levothyroxine Sodium 112 MCG TABLET PO (06:22)
[2022-08-02] MEDS: Omeprazole 20 MG CAPSULE.DR PO (06:22)
[2022-08-02 07:00] VITALS: BMI 41.3
--- NOTE | 2022-08-02 08:07 | HO.PSYCHPN ---
Subjective Subjective Date of Service: 08/02/22 Reason For Visit: unspecified depressive disorder Subjective Notes: Conditional Voluntary Interim History: The nursing staff reported the patient has been visible in the unit, quiet, compliant with treatment. He reports his anxiety and depression 06/11. He denies active suicidal ideation. The staff reported that he slept 6 hours but he complains of poor sleep due to back pain. The transition social worker reported that his called and we will have a family meeting with his and daughter next Saturday. On interview the patient remains dysphoric but able to contract for safety. We discussed treatment of chronic pain and he did not want Gabapenitn I offered a low dose of Elavil but we will started next week since we have just recently increased the Lexapro. I offered him Diclofenac for pain and he agreed. Mental Status Exam Mental Status Exam Patient Appearance: Well Grooomed and Appropriate Patient Orientation: Person, Place, Time and Situation Level of Consciousness: Awake Patient Behavior: Cooperative Mood Description: Calm Affect Description: Constricted Patient Cognition Impaired: Yes Ability to Follow Directions: Good Speech Pattern: Clear Hallucinations: None Delusions: Not Present Thought Process: Linear Thought Content: positive for [place] and positive for Circumstantial Judgement: Fair Diagnostics Vital Signs (24Hr): Vital Signs - 24 hr 08/01/22 18:00 Temperature 97.5 F Pulse Rate 77 Respiratory Rate 18 Blood Pressure 136/63 Pulse Oximetry 94 Oxygen Delivery Method Room Air BMI result Body Mass Index 40.4 Labs Results: 07/28/22 07:19 Medications Medications Current Medications Acetaminophen (Acetaminophen 325 Mg Tablet) 650 mg PO Q6H PRN PRN Reason: Headache/Pain Mild Scale (1-3) Al Hydroxide/Mg Hydroxide (Magnesium Hydrox/Alum Hydrox 30 Ml Oral.Susp) 30 ml PO Q6H PRN PRN Reason: Heartburn/Nausea Atorvastatin Calcium (Atorvastatin Calcium 40 Mg Tablet) 40 mg PO BEDTIME [facility] Last Admin: 08/01/22 22:26 Dose: 40 mg Escitalopram Oxalate (Escitalopram Oxalate 10 Mg Tablet) 10 mg PO DAILY [facility] Furosemide (Furosemide 40 Mg Tablet) 40 mg PO DAILY@1700 [facility]; Protocol Last Admin: 08/01/22 16:45 Dose: 40 mg Hydroxyzine HCl (Hydroxyzine Hcl 25 Mg Tablet) 25 mg PO Q6H PRN PRN Reason: Anxiety Last Admin: 07/28/22 21:46 Dose: 25 mg Levothyroxine Sodium (Levothyroxine Sodium 112 Mcg Tablet) 112 mcg PO DAILY@0600 [facility] Last Admin: 08/02/22 06:22 Dose: 112 mcg Losartan Potassium (Losartan Potassium 50 Mg Tablet) 50 mg PO DAILY [facility]; Protocol Last Admin: 08/01/22 10:03 Dose: 50 mg Losartan Potassium (Losartan Potassium 25 Mg Tablet) 25 mg PO BEDTIME [facility]; Protocol Last Admin: 08/01/22 22:26 Dose: 25 mg Magnesium Hydroxide (Milk Of Magnesia 30 Ml Oral.Susp) 30 ml PO DAILY PRN PRN Reason: Constipation Multivitamins/Vitamin C (Multivitamin Tablet) 1 tab PO DAILY [facility] Last Admin: 08/01/22 10:08 Dose: 1 tab Olanzapine (Olanzapine Odt 10 Mg Tab.Rapdis) 5 mg TRANSLINGU BID PRN PRN Reason: agitation Omeprazole (Omeprazole 20 Mg Capsule.Dr) 20 mg PO DAILY@0630 [facility] Last Admin: 08/02/22 06:22 Dose: 20 mg Tizanidine HCl (Tizanidine Hcl 4 Mg Tablet) 4 mg PO BEDTIME [facility] Last Admin: 08/01/22 22:26 Dose: 4 mg Tramadol HCl (Tramadol Hcl 50 Mg Tablet) 50 mg PO BID PRN PRN Reason: Pain, Moderate (Pain Scale 4-6 Last Admin: 08/01/22 12:36 Dose: 50 mg Trazodone HCl (Trazodone Hcl 100 Mg Tablet) 200 mg PO BEDTIME [facility] Last Admin: 08/01/22 22:25 Dose: 200 mg Triamcinolone Acetonide (Triamcinolone Acet 0.1 % Cream 15 Gm Tube) 1 appl TOPICAL BID [facility]; Protocol Last Admin: 08/01/22 23:26 Dose: Not Given Vitamin D (Cholecalciferol (Vitamin D3) 25 Mcg Tablet) 50 mcg PO DAILY [facility] Last Admin: 08/01/22 10:03 Dose: 50 mcg Allergies Allergies Allergy/AdvReac Type Severity Reaction Status Date / Time venlafaxine [From Effexor] AdvReac Agitated Verified 07/27/22 18:47 Assessment & Plan Assessment & Plan (1) Depression, major, severe recurrence: Status: Acute Code(s): F33.2 - Major depressive disorder, recurrent severe without psychotic features Plan The patient is an elderly male with a long history of depression who was admitted into the hospital for suicidality and increase irritability with the change of medications, also his nurse practitioner who prescribed him in the community reported delirium. Plan 1. Gather collateral information from the family. 2. We will continue with antidepressants 3. Continue with Ativan p.r.n.. 4. Increase Trazodone up to 200 mg po qhs as per the community. 5. Continue medical workup 6. Increase Lexapro up to 10 mg tomorrow morning. First does August 02. 7. Diclofenac 3 times a day with meals 50 mg started on August 02 I spent __20____ minutes with the patient and/or on the patient floor today, greater than?50% of which was spent counseling/coordinating care. Reason for contiued inpatient stay Substantial Risk for: inability to function, rapid decompensation and med/psych decompensation
[2022-08-02] MEDS: Cholecalciferol (Vitamin D3) 25 MCG TABLET 50 MCG PO (10:10)
[2022-08-02] MEDS: Multivitamin TABLET 1 TAB PO (10:10)
[2022-08-02] MEDS: Losartan Potassium 50 MG TABLET PO (10:10)
[2022-08-02] MEDS: Escitalopram Oxalate 10 MG TABLET PO (10:10)
[2022-08-02] MEDS: traMADoL HCL 50 MG TABLET PO ×2 (14:27→20:24)
[2022-08-02] MEDS: Furosemide 40 MG TABLET PO (17:01)
[2022-08-02] MEDS: Diclofenac Sodium Delayed Rel 50 MG TABLET.DR PO (17:01)
[2022-08-02 21:28] VITALS: BP 126/73; PULSE 75; RESP 12; TEMP 36.4; O2SAT 97
[2022-08-02] MEDS: TiZANidine HCL 4 MG TABLET PO (21:28)
[2022-08-02] MEDS: Losartan Potassium 25 MG TABLET PO (21:28)
[2022-08-02] MEDS: hydrOXYzine HCL 25 MG TABLET PO (21:28)
[2022-08-02] MEDS: traZODone HCL 100 MG TABLET 200 MG PO (21:28)
[2022-08-02] MEDS: Atorvastatin Calcium 40 MG TABLET PO (21:29)
[2022-08-03] MEDS: Omeprazole 20 MG CAPSULE.DR PO (06:44)
[2022-08-03] MEDS: Levothyroxine Sodium 112 MCG TABLET PO (06:44)
[2022-08-03] MEDS: Losartan Potassium 50 MG TABLET PO (09:35)
[2022-08-03] MEDS: Cholecalciferol (Vitamin D3) 25 MCG TABLET 50 MCG PO (09:36)
[2022-08-03] MEDS: Multivitamin TABLET 1 TAB PO (09:36)
[2022-08-03] MEDS: Diclofenac Sodium Delayed Rel 50 MG TABLET.DR PO (09:36)
[2022-08-03] MEDS: traMADoL HCL 50 MG TABLET PO ×4 (09:36→21:31)
[2022-08-03] MEDS: Escitalopram Oxalate 10 MG TABLET PO (09:36)
[2022-08-03 09:53] VITALS: BP 139/68; PULSE 85; RESP 16; TEMP 36.5; O2SAT 93
--- NOTE | 2022-08-03 10:35 | P.PNPSI_ITS ---
Subjective Subjective Date of Service: 08/03/22 Reason For Visit: unspecified depressive disorder Subjective Notes: Conditional Voluntary Interim History: The nursing staff reported the patient slept all night, he has been cooperative and pleasant. He is on one-to-one at night since he used his CPAP machine. On interview the patient reports mild depression and anxiety. Yesterday we started the Klonopin at to target his chronic pain, the patient has DISH syn drome and he had previous surgical procedures for this condition. I encouraged him to use his tramadol before he is in too much pain. He asked for PRN narcotics if his pain worsened. Mental Status Exam Mental Status Exam Patient Appearance: Well Grooomed and Appropriate Patient Orientation: Person, Place and Situation Level of Consciousness: Awake and Appropriate Patient Behavior: Cooperative Mood Description: Depressed Affect Description: Constricted Patient Cognition Impaired: No Ability to Follow Directions: Good Speech Pattern: Clear Hallucinations: None Delusions: Not Present Thought Process: Linear Thought Content: positive for Circumstantial Judgement: Fair Diagnostics Vital Signs (24Hr): Vital Signs - 24 hr 08/02/22 21:28 08/03/22 09:53 Temperature 97.6 F 97.7 F Pulse Rate 75 85 Respiratory Rate 12 16 Blood Pressure 126/73 139/68 Pulse Oximetry 97 93 Oxygen Delivery Method Room Air Room Air BMI result Body Mass Index 41.3 Labs Results: 07/28/22 07:19 Medications Medications Current Medications Acetaminophen (Acetaminophen 325 Mg Tablet) 650 mg PO Q6H PRN PRN Reason: Headache/Pain Mild Scale (1-3) Al Hydroxide/Mg Hydroxide (Magnesium Hydrox/Alum Hydrox 30 Ml Oral.Susp) 30 ml PO Q6H PRN PRN Reason: Heartburn/Nausea Atorvastatin Calcium (Atorvastatin Calcium 40 Mg Tablet) 40 mg PO BEDTIME [facility] Last Admin: 08/02/22 21:29 Dose: 40 mg Diclofenac Sodium (Diclofenac Sodium Delayed Rel 50 Mg Tablet.) 50 mg PO BIDWM [facility] Last Admin: 08/03/22 09:36 Dose: 50 mg Escitalopram Oxalate (Escitalopram Oxalate 10 Mg Tablet) 10 mg PO DAILY [facility] Last Admin: 08/03/22 09:36 Dose: 10 mg Furosemide (Furosemide 40 Mg Tablet) 40 mg PO DAILY@1700 [facility]; Protocol Last Admin: 08/02/22 17:01 Dose: 40 mg Hydroxyzine HCl (Hydroxyzine Hcl 25 Mg Tablet) 25 mg PO Q6H PRN PRN Reason: Anxiety Last Admin: 08/02/22 21:28 Dose: 25 mg Levothyroxine Sodium (Levothyroxine Sodium 112 Mcg Tablet) 112 mcg PO DAILY@0600 [facility] Last Admin: 08/03/22 06:44 Dose: 112 mcg Losartan Potassium (Losartan Potassium 50 Mg Tablet) 50 mg PO DAILY [facility]; Protocol Last Admin: 08/03/22 09:35 Dose: 50 mg Losartan Potassium (Losartan Potassium 25 Mg Tablet) 25 mg PO BEDTIME [facility]; Protocol Last Admin: 08/02/22 21:28 Dose: 25 mg Magnesium Hydroxide (Milk Of Magnesia 30 Ml Oral.Susp) 30 ml PO DAILY PRN PRN Reason: Constipation Multivitamins/Vitamin C (Multivitamin Tablet) 1 tab PO DAILY [facility] Last Admin: 08/03/22 09:36 Dose: 1 tab Olanzapine (Olanzapine Odt 10 Mg Tab.Rapdis) 5 mg TRANSLINGU BID PRN PRN Reason: agitation Omeprazole (Omeprazole 20 Mg Capsule.Dr) 20 mg PO DAILY@0630 [facility] Last Admin: 08/03/22 06:44 Dose: 20 mg Tizanidine HCl (Tizanidine Hcl 4 Mg Tablet) 4 mg PO BEDTIME [facility] Last Admin: 08/02/22 21:28 Dose: 4 mg Tramadol HCl (Tramadol Hcl 50 Mg Tablet) 50 mg PO Q4H PRN PRN Reason: Pain, Moderate (Pain Scale 4-6 Last Admin: 08/03/22 09:36 Dose: 50 mg Trazodone HCl (Trazodone Hcl 100 Mg Tablet) 200 mg PO BEDTIME [facility] Last Admin: 08/02/22 21:28 Dose: 200 mg Triamcinolone Acetonide (Triamcinolone Acet 0.1 % Cream 15 Gm Tube) 1 appl TOPICAL BID [facility]; Protocol Last Admin: 08/03/22 09:51 Dose: Not Given Vitamin D (Cholecalciferol (Vitamin D3) 25 Mcg Tablet) 50 mcg PO DAILY [facility] Last Admin: 08/03/22 09:36 Dose: 50 mcg Allergies Allergies Allergy/AdvReac Type Severity Reaction Status Date / Time venlafaxine [From Effexor] AdvReac Agitated Verified 07/27/22 18:47 Assessment & Plan Assessment & Plan (1) Depression, major, severe recurrence: Status: Acute Code(s): F33.2 - Major depressive disorder, recurrent severe without psychotic features Plan The patient is an elderly male with a long history of depression who was admitted into the hospital for suicidality and increase irritability with the change of medications, also his nurse practitioner who prescribed him in the community reported delirium. Plan 1. Gather collateral information from the family. 2. We will continue with antidepressants 3. Continue with Ativan p.r.n.. 4. Increase Trazodone up to 200 mg po qhs as per the community. 5. Continue medical workup 6. Increase Lexapro up to 10 mg tomorrow morning. First does August 02. 7. Diclofenac 3 times a day with meals, increased up to 75 mg increased on August 03. 8. Oxycodone 10 mg prn severe pain. I spent __20____ minutes with the patient and/or on the patient floor today, greater than?50% of which was spent counseling/coordinating care. Reason for contiued inpatient stay Substantial Risk for: inability to function, rapid decompensation and med/psych decompensation
[2022-08-03] MEDS: Furosemide 40 MG TABLET PO (17:31)
[2022-08-03] MEDS: Diclofenac Sodium Delayed Rel 75 MG TABLET.DR PO ×2 (17:31→22:20)
[2022-08-03 22:02] VITALS: BP 118/61; PULSE 68; RESP 12; TEMP 36.4; O2SAT 97
[2022-08-03 22:19] VITALS: BP 129/78; PULSE 60
[2022-08-03] MEDS: Atorvastatin Calcium 40 MG TABLET PO (22:20)
[2022-08-03] MEDS: Losartan Potassium 25 MG TABLET PO (22:20)
[2022-08-03] MEDS: TiZANidine HCL 4 MG TABLET PO (22:20)
[2022-08-03] MEDS: traZODone HCL 100 MG TABLET 200 MG PO (22:20)
[2022-08-04 06:00] VITALS: BP 128/60; PULSE 72; RESP 19; TEMP 36.1; O2SAT 97
[2022-08-04] MEDS: Omeprazole 20 MG CAPSULE.DR PO (06:31)
[2022-08-04] MEDS: Levothyroxine Sodium 112 MCG TABLET PO (06:32)
[2022-08-04] MEDS: traMADoL HCL 50 MG TABLET PO ×3 (06:32→21:49)
[2022-08-04] MEDS: Diclofenac Sodium Delayed Rel 75 MG TABLET.DR PO ×3 (08:52→21:47)
[2022-08-04] MEDS: Escitalopram Oxalate 10 MG TABLET PO (08:54)
[2022-08-04] MEDS: Multivitamin TABLET 1 TAB PO (08:55)
[2022-08-04] MEDS: Cholecalciferol (Vitamin D3) 25 MCG TABLET 50 MCG PO (08:55)
[2022-08-04] MEDS: Losartan Potassium 50 MG TABLET PO (08:55)
[2022-08-04] MEDS: Triamcinolone Acet 0.1 % Cream 15 GM TUBE 1 APPL TOPICAL (09:00)
--- NOTE | 2022-08-04 09:15 | P.PNPSI_ITS ---
Subjective Subjective Date of Service: 08/04/22 Reason For Visit: unspecified depressive disorder Subjective Notes: Conditional Voluntary Healthcare Proxy: No Guardianship: No Medical Problems Affecting Mental Status: Yes (arthritis pain) Interim History: Pt feeling much better since started diclofenac- feels relieved can close his hands again, pending meeting with daugthers and - Saturday- will determine where he goes when dced- Medication Compliance: Yes Side effects from medications: No Attending Groups: Yes Review of Systems Acute medical concerns: No Medical Review of Systems: unchanged Mental Status Exam Mental Status Exam Narrative: sitting at table with cane under right arm Patient Appearance: Well Grooomed Patient Orientation: Person, Place, Time and Situation Level of Consciousness: Awake Patient Behavior: Appropriate Mood Description: Calm Affect Description: Calm Patient Cognition Impaired: No Ability to Follow Directions: Good Speech Pattern: Clear Hallucinations: None Delusions: Not Present Thought Process: Intact and Goal Oriented Thought Content: positive for Intact Depressive Symptoms: Increased Anxiety Judgement: Good Diagnostics Vital Signs (24Hr): Vital Signs - 24 hr 08/03/22 09:53 08/03/22 22:02 08/03/22 22:19 Temperature 97.7 F 97.5 F Pulse Rate 85 68 60 Respiratory Rate 16 12 Blood Pressure 139/68 118/61 129/78 Pulse Oximetry 93 97 Oxygen Delivery Method Room Air Room Air BMI result Body Mass Index 41.3 Labs Results: 07/28/22 07:19 Medications Medications Current Medications Acetaminophen (Acetaminophen 325 Mg Tablet) 650 mg PO Q6H PRN PRN Reason: Headache/Pain Mild Scale (1-3) Al Hydroxide/Mg Hydroxide (Magnesium Hydrox/Alum Hydrox 30 Ml Oral.Susp) 30 ml PO Q6H PRN PRN Reason: Heartburn/Nausea Atorvastatin Calcium (Atorvastatin Calcium 40 Mg Tablet) 40 mg PO BEDTIME [facility] Last Admin: 08/03/22 22:20 Dose: 40 mg Diclofenac Sodium (Diclofenac Sodium Delayed Rel 75 Mg Tablet.Dr) 75 mg PO TID [facility] Last Admin: 08/04/22 08:52 Dose: 75 mg Escitalopram Oxalate (Escitalopram Oxalate 10 Mg Tablet) 10 mg PO DAILY [facility] Last Admin: 08/04/22 08:54 Dose: 10 mg Furosemide (Furosemide 40 Mg Tablet) 40 mg PO DAILY@1700 [facility]; Protocol Last Admin: 08/03/22 17:31 Dose: 40 mg Hydroxyzine HCl (Hydroxyzine Hcl 25 Mg Tablet) 25 mg PO Q6H PRN PRN Reason: Anxiety Last Admin: 08/02/22 21:28 Dose: 25 mg Levothyroxine Sodium (Levothyroxine Sodium 112 Mcg Tablet) 112 mcg PO DAILY@0600 [facility] Last Admin: 08/04/22 06:32 Dose: 112 mcg Losartan Potassium (Losartan Potassium 50 Mg Tablet) 50 mg PO DAILY [facility]; Protocol Last Admin: 08/04/22 08:55 Dose: 50 mg Losartan Potassium (Losartan Potassium 25 Mg Tablet) 25 mg PO BEDTIME [facility]; Protocol Last Admin: 08/03/22 22:20 Dose: 25 mg Magnesium Hydroxide (Milk Of Magnesia 30 Ml Oral.Susp) 30 ml PO DAILY PRN PRN Reason: Constipation Multivitamins/Vitamin C (Multivitamin Tablet) 1 tab PO DAILY [facility] Last Admin: 08/04/22 08:55 Dose: 1 tab Olanzapine (Olanzapine Odt 10 Mg Tab.Rapdis) 5 mg TRANSLINGU BID PRN PRN Reason: agitation Omeprazole (Omeprazole 20 Mg Capsule.Dr) 20 mg PO DAILY@0630 [facility] Last Admin: 08/04/22 06:31 Dose: 20 mg Oxycodone HCl (Oxycodone Hcl Immed Release 5 Mg Tablet) 10 mg PO Q6H PRN PRN Reason: Pain, Severe (Pain Scale 7-10) Tizanidine HCl (Tizanidine Hcl 4 Mg Tablet) 4 mg PO BEDTIME [facility] Last Admin: 08/03/22 22:20 Dose: 4 mg Tramadol HCl (Tramadol Hcl 50 Mg Tablet) 50 mg PO Q4H PRN PRN Reason: Pain, Moderate (Pain Scale 4-6 Last Admin: 08/04/22 06:32 Dose: 50 mg Trazodone HCl (Trazodone Hcl 100 Mg Tablet) 200 mg PO BEDTIME [facility] Last Admin: 08/03/22 22:20 Dose: 200 mg Triamcinolone Acetonide (Triamcinolone Acet 0.1 % Cream 15 Gm Tube) 1 appl TOPICAL BID [facility]; Protocol Last Admin: 08/04/22 09:00 Dose: 1 appl Vitamin D (Cholecalciferol (Vitamin D3) 25 Mcg Tablet) 50 mcg PO DAILY [facility] Last Admin: 08/04/22 08:55 Dose: 50 mcg Allergies Allergies Allergy/AdvReac Type Severity Reaction Status Date / Time venlafaxine [From Effexor] AdvReac Agitated Verified 07/27/22 18:47 Assessment & Plan Assessment & Plan (1) Depression, major, severe recurrence: Status: Acute Code(s): F33.2 - Major depressive disorder, recurrent severe without psychotic features Assessment and Plan: ok on current medication- denies si - Plan The patient is an elderly male with a long history of depression who was admitted into the hospital for suicidality and increase irritability with the change of medications, also his nurse practitioner who prescribed him in the community reported delirium. Plan 1. Gather collateral information from the family. 2. We will continue with antidepressants 3. Continue with Ativan p.r.n.. 4. Increase Trazodone up to 200 mg po qhs as per the community. 5. Continue medical workup 6. Increase Lexapro up to 10 mg tomorrow morning. First does August 02. 7. Diclofenac 3 times a day with meals, increased up to 75 mg increased on August 03. 8. Oxycodone 10 mg prn severe pain. I spent minutes with the patient and/or on the patient floor today, greater than?50% of which was spent counseling/coordinating care. Patient educated on: therapeutic strategies Informed Consent: understands Reason for contiued inpatient stay Substantial Risk for: rapid decompensation
[2022-08-04] MEDS: Furosemide 40 MG TABLET PO (16:55)
[2022-08-04 18:00] VITALS: BP 104/56; PULSE 66; RESP 16; TEMP 35.5; O2SAT 94
[2022-08-04] MEDS: Losartan Potassium 25 MG TABLET PO (21:47)
[2022-08-04] MEDS: Atorvastatin Calcium 40 MG TABLET PO (21:47)
[2022-08-04] MEDS: TiZANidine HCL 4 MG TABLET PO (22:55)
[2022-08-04] MEDS: traZODone HCL 100 MG TABLET 200 MG PO (22:55)
[2022-08-05] MEDS: traMADoL HCL 50 MG TABLET PO ×3 (05:24→20:41)
[2022-08-05] MEDS: Levothyroxine Sodium 112 MCG TABLET PO (05:24)
[2022-08-05] MEDS: Omeprazole 20 MG CAPSULE.DR PO (05:24)
[2022-08-05 08:30] VITALS: BP 109/57; PULSE 68; RESP 16; TEMP 36.8; O2SAT 94
[2022-08-05] MEDS: Losartan Potassium 50 MG TABLET PO (08:36)
[2022-08-05] MEDS: Cholecalciferol (Vitamin D3) 25 MCG TABLET 50 MCG PO (08:36)
[2022-08-05] MEDS: Diclofenac Sodium Delayed Rel 75 MG TABLET.DR PO ×3 (08:36→22:28)
[2022-08-05] MEDS: Escitalopram Oxalate 10 MG TABLET PO (08:36)
[2022-08-05] MEDS: Multivitamin TABLET 1 TAB PO (08:36)
[2022-08-05] MEDS: Triamcinolone Acet 0.1 % Cream 15 GM TUBE 1 APPL TOPICAL (08:38)
--- NOTE | 2022-08-05 09:42 | HO.PSYCHPN ---
Subjective Subjective Date of Service: 08/05/22 Reason For Visit: unspecified depressive disorder Subjective Notes: Conditional Voluntary Healthcare Proxy: No Guardianship: No Medical Problems Affecting Mental Status: No (well on admission arthritis and pain control were , but better now) Interim History: Pt feeling appropriately anxious about family meeting tomorrow with , knows daugthers will support him no matter what. mood much improved no si and feels relieved pain is managed better with current regimen here Medication Compliance: Yes Side effects from medications: No Attending Groups: Intermittent Review of Systems Acute medical concerns: No Medical Review of Systems: unchanged Mental Status Exam Mental Status Exam Narrative: sitting at table with cane under right arm Patient Appearance: Well Grooomed Patient Orientation: Person, Place, Time and Situation Level of Consciousness: Awake Patient Behavior: Appropriate Mood Description: Calm Affect Description: Calm Patient Cognition Impaired: No Ability to Follow Directions: Good Speech Pattern: Clear Hallucinations: None Delusions: Not Present Thought Process: Intact and Goal Oriented Thought Content: positive for Intact Depressive Symptoms: Increased Anxiety Judgement: Good Diagnostics Vital Signs (24Hr): Vital Signs - 24 hr 08/04/22 18:00 Temperature 96 F L Pulse Rate 66 Respiratory Rate 16 Blood Pressure 104/56 L Pulse Oximetry 94 Oxygen Delivery Method Room Air BMI result Body Mass Index 41.3 Labs Results: 07/28/22 07:19 Medications Medications Current Medications Acetaminophen (Acetaminophen 325 Mg Tablet) 650 mg PO Q6H PRN PRN Reason: Headache/Pain Mild Scale (1-3) Al Hydroxide/Mg Hydroxide (Magnesium Hydrox/Alum Hydrox 30 Ml Oral.Susp) 30 ml PO Q6H PRN PRN Reason: Heartburn/Nausea Atorvastatin Calcium (Atorvastatin Calcium 40 Mg Tablet) 40 mg PO BEDTIME [facility] Last Admin: 08/04/22 21:47 Dose: 40 mg Diclofenac Sodium (Diclofenac Sodium Delayed Rel 75 Mg Tablet.Dr) 75 mg PO TID [facility] Last Admin: 08/05/22 08:36 Dose: 75 mg Escitalopram Oxalate (Escitalopram Oxalate 10 Mg Tablet) 10 mg PO DAILY [facility] Last Admin: 08/05/22 08:36 Dose: 10 mg Furosemide (Furosemide 40 Mg Tablet) 40 mg PO DAILY@1700 [facility]; Protocol Last Admin: 08/04/22 16:55 Dose: 40 mg Hydroxyzine HCl (Hydroxyzine Hcl 25 Mg Tablet) 25 mg PO Q6H PRN PRN Reason: Anxiety Last Admin: 08/02/22 21:28 Dose: 25 mg Levothyroxine Sodium (Levothyroxine Sodium 112 Mcg Tablet) 112 mcg PO DAILY@0600 [facility] Last Admin: 08/05/22 05:24 Dose: 112 mcg Losartan Potassium (Losartan Potassium 50 Mg Tablet) 50 mg PO DAILY [facility]; Protocol Last Admin: 08/05/22 08:36 Dose: 50 mg Losartan Potassium (Losartan Potassium 25 Mg Tablet) 25 mg PO BEDTIME [facility]; Protocol Last Admin: 08/04/22 21:47 Dose: 25 mg Magnesium Hydroxide (Milk Of Magnesia 30 Ml Oral.Susp) 30 ml PO DAILY PRN PRN Reason: Constipation Multivitamins/Vitamin C (Multivitamin Tablet) 1 tab PO DAILY [facility] Last Admin: 08/05/22 08:36 Dose: 1 tab Olanzapine (Olanzapine Odt 10 Mg Tab.Rapdis) 5 mg TRANSLINGU BID PRN PRN Reason: agitation Omeprazole (Omeprazole 20 Mg Capsule.Dr) 20 mg PO DAILY@0630 [facility] Last Admin: 08/05/22 05:24 Dose: 20 mg Oxycodone HCl (Oxycodone Hcl Immed Release 5 Mg Tablet) 10 mg PO Q6H PRN PRN Reason: Pain, Severe (Pain Scale 7-10) Tizanidine HCl (Tizanidine Hcl 4 Mg Tablet) 4 mg PO BEDTIME [facility] Last Admin: 08/04/22 22:55 Dose: 4 mg Tramadol HCl (Tramadol Hcl 50 Mg Tablet) 50 mg PO Q4H PRN PRN Reason: Pain, Moderate (Pain Scale 4-6 Last Admin: 08/05/22 05:24 Dose: 50 mg Trazodone HCl (Trazodone Hcl 100 Mg Tablet) 200 mg PO BEDTIME [facility] Last Admin: 08/04/22 22:55 Dose: 200 mg Triamcinolone Acetonide (Triamcinolone Acet 0.1 % Cream 15 Gm Tube) 1 appl TOPICAL BID [facility]; Protocol Last Admin: 08/05/22 08:38 Dose: 1 appl Vitamin D (Cholecalciferol (Vitamin D3) 25 Mcg Tablet) 50 mcg PO DAILY [facility] Last Admin: 08/05/22 08:36 Dose: 50 mcg Allergies Allergies Allergy/AdvReac Type Severity Reaction Status Date / Time venlafaxine [From Effexor] AdvReac Agitated Verified 07/27/22 18:47 Assessment & Plan Assessment & Plan (1) Depression, major, severe recurrence: Status: Acute Code(s): F33.2 - Major depressive disorder, recurrent severe without psychotic features Assessment and Plan: ok on current medication- denies si - Plan The patient is an elderly male with a long history of depression who was admitted into the hospital for suicidality and increase irritability with the change of medications, also his nurse practitioner who prescribed him in the community reported delirium. Plan 1. Gather collateral information from the family. 2. We will continue with antidepressants 3. Continue with Ativan p.r.n.. 4. Increase Trazodone up to 200 mg po qhs as per the community. 5. Continue medical workup 6. Increase Lexapro up to 10 mg tomorrow morning. First does August 02. 7. Diclofenac 3 times a day with meals, increased up to 75 mg increased on August 03. 8. Oxycodone 10 mg prn severe pain. I spent minutes with the patient and/or on the patient floor today, greater than?50% of which was spent counseling/coordinating care. Patient educated on: therapeutic strategies Informed Consent: understands Reason for contiued inpatient stay Substantial Risk for: rapid decompensation
[2022-08-05] MEDS: oxyCODONE HCl Immed Release 5 MG TABLET 10 MG PO (13:38)
[2022-08-05] MEDS: Furosemide 40 MG TABLET PO (16:45)
[2022-08-05 18:00] VITALS: BP 123/66; PULSE 58; RESP 16; TEMP 35.8; O2SAT 95
[2022-08-05] MEDS: traZODone HCL 100 MG TABLET 200 MG PO (22:26)
[2022-08-05] MEDS: TiZANidine HCL 4 MG TABLET PO (22:26)
[2022-08-05] MEDS: Atorvastatin Calcium 40 MG TABLET PO (22:28)
[2022-08-05] MEDS: Losartan Potassium 25 MG TABLET PO (22:28)
[2022-08-06] MEDS: Omeprazole 20 MG CAPSULE.DR PO (06:53)
[2022-08-06] MEDS: Levothyroxine Sodium 112 MCG TABLET PO (06:53)
[2022-08-06] MEDS: Diclofenac Sodium Delayed Rel 75 MG TABLET.DR PO ×3 (08:15→22:38)
[2022-08-06] MEDS: Losartan Potassium 50 MG TABLET PO (08:15)
[2022-08-06] MEDS: Multivitamin TABLET 1 TAB PO (08:15)
[2022-08-06] MEDS: Cholecalciferol (Vitamin D3) 25 MCG TABLET 50 MCG PO (08:15)
[2022-08-06] MEDS: Escitalopram Oxalate 10 MG TABLET PO (08:15)
--- NOTE | 2022-08-06 10:57 | P.PNPSI_ITS ---
Subjective Subjective Date of Service: 08/06/22 Reason For Visit: unspecified depressive disorder Subjective Notes: Conditional Voluntary Interim History: The nursing staff reported the patient has been compliant with treatment. The occupational therapist reported that he attends to groups and participate. The social services apparently his is angry for all this situation most likely she will file for separation. We had a family meeting today at 13:00 and we discussed options, his is scared about the safety and his angry outbursts. On interview the patient denies new symptoms he looks on chronic pain but able to address his medical problems. He admitted improvement of pain with Voltaren tid. Mood remains more stable. Mental Status Exam Mental Status Exam Patient Appearance: Well Grooomed and Appropriate Patient Orientation: Person and Situation Level of Consciousness: Awake and Appropriate Patient Behavior: Cooperative Mood Description: Withdrawn Affect Description: Constricted Ability to Follow Directions: Good Speech Pattern: Clear Hallucinations: None Delusions: Not Present Thought Process: Linear Thought Content: positive for Circumstantial Judgement: Fair Diagnostics Vital Signs (24Hr): Vital Signs - 24 hr 08/05/22 18:00 Temperature 96.5 F L Pulse Rate 58 Respiratory Rate 16 Blood Pressure 123/66 Pulse Oximetry 95 Oxygen Delivery Method Room Air BMI result Body Mass Index 41.3 Labs Results: 07/28/22 07:19 Medications Medications Current Medications Acetaminophen (Acetaminophen 325 Mg Tablet) 650 mg PO Q6H PRN PRN Reason: Headache/Pain Mild Scale (1-3) Al Hydroxide/Mg Hydroxide (Magnesium Hydrox/Alum Hydrox 30 Ml Oral.Susp) 30 ml PO Q6H PRN PRN Reason: Heartburn/Nausea Atorvastatin Calcium (Atorvastatin Calcium 40 Mg Tablet) 40 mg PO BEDTIME [facility] Last Admin: 08/05/22 22:28 Dose: 40 mg Diclofenac Sodium (Diclofenac Sodium Delayed Rel 75 Mg Tablet.) 75 mg PO TID [facility] Last Admin: 08/06/22 08:15 Dose: 75 mg Escitalopram Oxalate (Escitalopram Oxalate 10 Mg Tablet) 10 mg PO DAILY [facility] Last Admin: 08/06/22 08:15 Dose: 10 mg Furosemide (Furosemide 40 Mg Tablet) 40 mg PO DAILY@1700 [facility]; Protocol Last Admin: 08/05/22 16:45 Dose: 40 mg Hydroxyzine HCl (Hydroxyzine Hcl 25 Mg Tablet) 25 mg PO Q6H PRN PRN Reason: Anxiety Last Admin: 08/02/22 21:28 Dose: 25 mg Levothyroxine Sodium (Levothyroxine Sodium 112 Mcg Tablet) 112 mcg PO DAILY@0600 [facility] Last Admin: 08/06/22 06:53 Dose: 112 mcg Losartan Potassium (Losartan Potassium 50 Mg Tablet) 50 mg PO DAILY [facility]; Protocol Last Admin: 08/06/22 08:15 Dose: 50 mg Losartan Potassium (Losartan Potassium 25 Mg Tablet) 25 mg PO BEDTIME [facility]; Protocol Last Admin: 08/05/22 22:28 Dose: 25 mg Magnesium Hydroxide (Milk Of Magnesia 30 Ml Oral.Susp) 30 ml PO DAILY PRN PRN Reason: Constipation Multivitamins/Vitamin C (Multivitamin Tablet) 1 tab PO DAILY [facility] Last Admin: 08/06/22 08:15 Dose: 1 tab Olanzapine (Olanzapine Odt 10 Mg Tab.Rapdis) 5 mg TRANSLINGU BID PRN PRN Reason: agitation Omeprazole (Omeprazole 20 Mg Capsule.Dr) 20 mg PO DAILY@0630 [facility] Last Admin: 08/06/22 06:53 Dose: 20 mg Oxycodone HCl (Oxycodone Hcl Immed Release 5 Mg Tablet) 10 mg PO Q6H PRN PRN Reason: Pain, Severe (Pain Scale 7-10) Last Admin: 08/05/22 13:38 Dose: 10 mg Tizanidine HCl (Tizanidine Hcl 4 Mg Tablet) 4 mg PO BEDTIME [facility] Last Admin: 08/05/22 22:26 Dose: 4 mg Tramadol HCl (Tramadol Hcl 50 Mg Tablet) 50 mg PO Q4H PRN PRN Reason: Pain, Moderate (Pain Scale 4-6 Last Admin: 08/05/22 20:41 Dose: 50 mg Trazodone HCl (Trazodone Hcl 100 Mg Tablet) 200 mg PO BEDTIME [facility] Last Admin: 08/05/22 22:26 Dose: 200 mg Triamcinolone Acetonide (Triamcinolone Acet 0.1 % Cream 15 Gm Tube) 1 appl TOPICAL BID [facility]; Protocol Last Admin: 08/06/22 08:56 Dose: Not Given Vitamin D (Cholecalciferol (Vitamin D3) 25 Mcg Tablet) 50 mcg PO DAILY [facility] Last Admin: 08/06/22 08:15 Dose: 50 mcg Allergies Allergies Allergy/AdvReac Type Severity Reaction Status Date / Time venlafaxine [From Effexor] AdvReac Agitated Verified 07/27/22 18:47 Assessment & Plan Assessment & Plan (1) Depression, major, severe recurrence: Status: Acute Code(s): F33.2 - Major depressive disorder, recurrent severe without psychotic features Assessment and Plan: ok on current medication- denies si - Plan The patient is an elderly male with a long history of depression who was admitted into the hospital for suicidality and increase irritability with the change of medications, also his nurse practitioner who prescribed him in the community reported delirium. Plan 1. Gather collateral information from the family. 2. We will continue with antidepressants 3. Continue with Ativan p.r.n.. 4. Increase Trazodone up to 200 mg po qhs as per the community. 5. Continue medical workup 6. Increase Lexapro up to 10 mg , started on August 02. 7. Diclofenac 3 times a day with meals, increased up to 75 mg increased on August 03. 8. Oxycodone 10 mg prn severe pain. 9. Start discharge planning. I spent ___20___ minutes with the patient and/or on the patient floor today, greater than?50% of which was spent counseling/coordinating care. Reason for contiued inpatient stay Substantial Risk for: inability to function, rapid decompensation and med/psych decompensation
[2022-08-06] MEDS: traMADoL HCL 50 MG TABLET PO ×3 (12:29→22:41)
[2022-08-06] MEDS: oxyCODONE HCl Immed Release 5 MG TABLET 10 MG PO ×2 (12:31→20:54)
[2022-08-06] MEDS: Furosemide 40 MG TABLET PO (16:47)
[2022-08-06 18:00] VITALS: BP 113/80; PULSE 68; RESP 12; TEMP 36.4; O2SAT 95
[2022-08-06] MEDS: Losartan Potassium 25 MG TABLET PO (20:58)
[2022-08-06] MEDS: Atorvastatin Calcium 40 MG TABLET PO (22:36)
[2022-08-06] MEDS: traZODone HCL 100 MG TABLET 200 MG PO (22:37)
[2022-08-06] MEDS: TiZANidine HCL 4 MG TABLET PO (22:37)
[2022-08-07 06:00] VITALS: BP 106/60; PULSE 70; RESP 16; TEMP 36.3; O2SAT 95
[2022-08-07] MEDS: Omeprazole 20 MG CAPSULE.DR PO (06:53)
[2022-08-07] MEDS: Levothyroxine Sodium 112 MCG TABLET PO (06:53)
[2022-08-07] MEDS: oxyCODONE HCl Immed Release 5 MG TABLET 10 MG PO ×2 (11:40→18:34)
[2022-08-07] MEDS: Escitalopram Oxalate 10 MG TABLET PO (11:42)
[2022-08-07] MEDS: Cholecalciferol (Vitamin D3) 25 MCG TABLET 50 MCG PO (11:42)
[2022-08-07] MEDS: Multivitamin TABLET 1 TAB PO (11:42)
[2022-08-07] MEDS: Losartan Potassium 50 MG TABLET PO (11:42)
[2022-08-07] MEDS: Diclofenac Sodium Delayed Rel 75 MG TABLET.DR PO ×3 (11:42→22:43)
--- NOTE | 2022-08-07 13:17 | P.PNPSI_ITS ---
Subjective Subjective Date of Service: 08/07/22 Reason For Visit: unspecified depressive disorder Subjective Notes: Conditional Voluntary Interim History: The nursing staff reported the patient has been pleasant and cooperative, fully compliant with treatment. Last night he has for tramadol and oxycodone with good effect. Had been seen in the unit in the common areas. The geriatric social work professor reported that the family meeting from yesterday it clear that they have a intermediate marital conflict but the is willing to take him back. On interview the patient reports improvement of his pain since diclofenac was started. No side effects. Mental Status Exam Mental Status Exam Patient Appearance: Well Grooomed Patient Orientation: Person and Situation Level of Consciousness: Awake and Appropriate Patient Behavior: Passive Mood Description: Calm Affect Description: Constricted Patient Cognition Impaired: No Ability to Follow Directions: Good Speech Pattern: Clear Hallucinations: None Delusions: Not Present Thought Process: Linear Thought Content: positive for [place] and positive for Circumstantial Judgement: Fair Diagnostics Vital Signs (24Hr): Vital Signs - 24 hr 08/06/22 18:00 Temperature 97.6 F Pulse Rate 68 Respiratory Rate 12 Blood Pressure 113/80 Pulse Oximetry 95 Oxygen Delivery Method Room Air BMI result Body Mass Index 41.3 Labs Results: 07/28/22 07:19 Medications Medications Current Medications Acetaminophen (Acetaminophen 325 Mg Tablet) 650 mg PO Q6H PRN PRN Reason: Headache/Pain Mild Scale (1-3) Al Hydroxide/Mg Hydroxide (Magnesium Hydrox/Alum Hydrox 30 Ml Oral.Susp) 30 ml PO Q6H PRN PRN Reason: Heartburn/Nausea Atorvastatin Calcium (Atorvastatin Calcium 40 Mg Tablet) 40 mg PO BEDTIME [facility] Last Admin: 08/06/22 22:36 Dose: 40 mg Diclofenac Sodium (Diclofenac Sodium Delayed Rel 75 Mg Tablet.Dr) 75 mg PO TID [facility] Last Admin: 08/07/22 11:42 Dose: 75 mg Escitalopram Oxalate (Escitalopram Oxalate 10 Mg Tablet) 10 mg PO DAILY [facility] Last Admin: 08/07/22 11:42 Dose: 10 mg Furosemide (Furosemide 40 Mg Tablet) 40 mg PO DAILY@1700 [facility]; Protocol Last Admin: 08/06/22 16:47 Dose: 40 mg Hydroxyzine HCl (Hydroxyzine Hcl 25 Mg Tablet) 25 mg PO Q6H PRN PRN Reason: Anxiety Last Admin: 08/02/22 21:28 Dose: 25 mg Levothyroxine Sodium (Levothyroxine Sodium 112 Mcg Tablet) 112 mcg PO DAILY@0600 [facility] Last Admin: 08/07/22 06:53 Dose: 112 mcg Losartan Potassium (Losartan Potassium 50 Mg Tablet) 50 mg PO DAILY [facility]; Protocol Last Admin: 08/07/22 11:42 Dose: 50 mg Losartan Potassium (Losartan Potassium 25 Mg Tablet) 25 mg PO BEDTIME [facility]; Protocol Last Admin: 08/06/22 20:58 Dose: 25 mg Magnesium Hydroxide (Milk Of Magnesia 30 Ml Oral.Susp) 30 ml PO DAILY PRN PRN Reason: Constipation Multivitamins/Vitamin C (Multivitamin Tablet) 1 tab PO DAILY [facility] Last Admin: 08/07/22 11:42 Dose: 1 tab Olanzapine (Olanzapine Odt 10 Mg Tab.Rapdis) 5 mg TRANSLINGU BID PRN PRN Reason: agitation Omeprazole (Omeprazole 20 Mg Capsule.Dr) 20 mg PO DAILY@0630 [facility] Last Admin: 08/07/22 06:53 Dose: 20 mg Oxycodone HCl (Oxycodone Hcl Immed Release 5 Mg Tablet) 10 mg PO Q6H PRN PRN Reason: Pain, Severe (Pain Scale 7-10) Last Admin: 08/07/22 11:40 Dose: 10 mg Tizanidine HCl (Tizanidine Hcl 4 Mg Tablet) 4 mg PO BEDTIME [facility] Last Admin: 08/06/22 22:37 Dose: 4 mg Tramadol HCl (Tramadol Hcl 50 Mg Tablet) 50 mg PO Q4H PRN PRN Reason: Pain, Moderate (Pain Scale 4-6 Last Admin: 08/06/22 22:41 Dose: 50 mg Trazodone HCl (Trazodone Hcl 100 Mg Tablet) 200 mg PO BEDTIME [facility] Last Admin: 08/06/22 22:37 Dose: 200 mg Triamcinolone Acetonide (Triamcinolone Acet 0.1 % Cream 15 Gm Tube) 1 appl TOPICAL BID [facility]; Protocol Last Admin: 08/07/22 11:44 Dose: Not Given Vitamin D (Cholecalciferol (Vitamin D3) 25 Mcg Tablet) 50 mcg PO DAILY [facility] Last Admin: 08/07/22 11:42 Dose: 50 mcg Allergies Allergies Allergy/AdvReac Type Severity Reaction Status Date / Time venlafaxine [From Effexor] AdvReac Agitated Verified 07/27/22 18:47 Assessment & Plan Assessment & Plan (1) Depression, major, severe recurrence: Status: Acute Code(s): F33.2 - Major depressive disorder, recurrent severe without psychotic features Assessment and Plan: ok on current medication- denies si - Plan The patient is an elderly male with a long history of depression who was admitted into the hospital for suicidality and increase irritability with the change of medications, also his nurse practitioner who prescribed him in the community reported delirium. Plan 1. Gather collateral information from the family. 2. We will continue with antidepressants 3. Continue with Ativan p.r.n.. 4. Increase Trazodone up to 200 mg po qhs as per the community. 5. Continue medical workup 6. Increase Lexapro up to 10 mg , started on August 02. 7. Diclofenac 3 times a day with meals, increased up to 75 mg increased on August 03. 8. Oxycodone 10 mg prn severe pain. 9. Start discharge planning. I spent ___20___ minutes with the patient and/or on the patient floor today, greater than?50% of which was spent counseling/coordinating care. Reason for contiued inpatient stay Substantial Risk for: inability to function, rapid decompensation and med/psych decompensation
[2022-08-07] MEDS: Furosemide 40 MG TABLET PO (16:16)
[2022-08-07 20:00] VITALS: BP 118/58; PULSE 61; RESP 18; TEMP 36.7; O2SAT 93
[2022-08-07] MEDS: TiZANidine HCL 4 MG TABLET PO (22:41)
[2022-08-07] MEDS: Atorvastatin Calcium 40 MG TABLET PO (22:42)
[2022-08-07] MEDS: traZODone HCL 100 MG TABLET 200 MG PO (22:42)
[2022-08-07] MEDS: Losartan Potassium 25 MG TABLET PO (22:42)
[2022-08-08 06:00] VITALS: BP 102/55; PULSE 62; RESP 17; TEMP 35.8; O2SAT 94
[2022-08-08] MEDS: Omeprazole 20 MG CAPSULE.DR PO (06:08)
[2022-08-08] MEDS: Levothyroxine Sodium 112 MCG TABLET PO (06:08)
[2022-08-08] MEDS: Cholecalciferol (Vitamin D3) 25 MCG TABLET 50 MCG PO (08:00)
[2022-08-08] MEDS: Diclofenac Sodium Delayed Rel 75 MG TABLET.DR PO ×3 (08:00→21:29)
[2022-08-08] MEDS: Escitalopram Oxalate 10 MG TABLET PO (08:00)
[2022-08-08] MEDS: Multivitamin TABLET 1 TAB PO (08:00)
[2022-08-08] MEDS: oxyCODONE HCl Immed Release 5 MG TABLET 10 MG PO ×2 (09:26→22:32)
[2022-08-08] MEDS: Losartan Potassium 50 MG TABLET PO (09:29)
--- NOTE | 2022-08-08 12:18 | HO.PSYCHPN ---
Subjective Subjective Date of Service: 08/08/22 Reason For Visit: unspecified depressive disorder Subjective Notes: Conditional Voluntary Interim History: The nursing staff reported the patient slept well, he has been anxious. The social work case manager reported that they are going to work on a safety plan and a discharge most likely will be this Saturday. On interview the patient reports pain on his back and I advised to take his p.r.n. medications as soon as possible. Mood remains mildly dysphoric, much better since admission. He denies suicidal ideation Mental Status Exam Mental Status Exam Patient Appearance: Well Grooomed Patient Orientation: Person and Situation Level of Consciousness: Awake and Appropriate Patient Behavior: Cooperative Mood Description: Withdrawn Affect Description: Constricted Patient Cognition Impaired: Yes Ability to Follow Directions: Good Speech Pattern: Clear Hallucinations: None Delusions: Not Present Thought Process: Linear Thought Content: positive for Circumstantial Judgement: Fair Diagnostics Vital Signs (24Hr): Vital Signs - 24 hr 08/07/22 20:00 08/08/22 06:00 Temperature 98.0 F 96.5 F L Pulse Rate 61 62 Respiratory Rate 18 17 Blood Pressure 118/58 L 102/55 L Pulse Oximetry 93 94 Oxygen Delivery Method Room Air Room Air BMI result Body Mass Index 41.3 Labs Results: 07/28/22 07:19 Medications Medications Current Medications Acetaminophen (Acetaminophen 325 Mg Tablet) 650 mg PO Q6H PRN PRN Reason: Headache/Pain Mild Scale (1-3) Al Hydroxide/Mg Hydroxide (Magnesium Hydrox/Alum Hydrox 30 Ml Oral.Susp) 30 ml PO Q6H PRN PRN Reason: Heartburn/Nausea Atorvastatin Calcium (Atorvastatin Calcium 40 Mg Tablet) [address] [facility] Last Admin: 08/07/22 22:42 Dose: 40 mg Diclofenac Sodium (Diclofenac Sodium Delayed Rel 75 Mg Tablet.Dr) [address] [facility] Last Admin: 08/08/22 08:00 Dose: 75 mg Escitalopram Oxalate (Escitalopram Oxalate 10 Mg Tablet) [address] [facility] Last Admin: 08/08/22 08:00 Dose: 10 mg Furosemide (Furosemide 40 Mg Tablet) 40 mg PO DAILY@1700 [facility]; Protocol Last Admin: 08/07/22 16:16 Dose: 40 mg Hydroxyzine HCl (Hydroxyzine Hcl 25 Mg Tablet) 25 mg PO Q6H PRN PRN Reason: Anxiety Last Admin: 08/02/22 21:28 Dose: 25 mg Levothyroxine Sodium (Levothyroxine Sodium 112 Mcg Tablet) 112 mcg PO DAILY@0600 [facility] Last Admin: 08/08/22 06:08 Dose: 112 mcg Losartan Potassium (Losartan Potassium 50 Mg Tablet) [address] [facility]; Protocol Last Admin: 08/08/22 09:29 Dose: 50 mg Losartan Potassium (Losartan Potassium 25 Mg Tablet) [address] [facility]; Protocol Last Admin: 08/07/22 22:42 Dose: 25 mg Magnesium Hydroxide (Milk Of Magnesia 30 Ml Oral.Susp) 30 ml PO DAILY PRN PRN Reason: Constipation Multivitamins/Vitamin C (Multivitamin Tablet) [address] [facility] Last Admin: 08/08/22 08:00 Dose: 1 tab Olanzapine (Olanzapine Odt 10 Mg Tab.Rapdis) 5 mg TRANSLINGU BID PRN PRN Reason: agitation Omeprazole (Omeprazole 20 Mg Capsule.Dr) 20 mg PO DAILY@0630 [facility] Last Admin: 08/08/22 06:08 Dose: 20 mg Oxycodone HCl (Oxycodone Hcl Immed Release 5 Mg Tablet) 10 mg PO Q6H PRN PRN Reason: Pain, Severe (Pain Scale 7-10) Last Admin: 08/08/22 09:26 Dose: 10 mg Tizanidine HCl (Tizanidine Hcl 4 Mg Tablet) [address] [facility] Last Admin: 08/07/22 22:41 Dose: 4 mg Trazodone HCl (Trazodone Hcl 100 Mg Tablet) [address] [facility] Last Admin: 08/07/22 22:42 Dose: 200 mg Triamcinolone Acetonide (Triamcinolone Acet 0.1 % Cream 15 Gm Tube) [address] [facility]; Protocol Last Admin: 08/08/22 12:13 Dose: Not Given Vitamin D (Cholecalciferol (Vitamin D3) 25 Mcg Tablet) [address] [facility] Last Admin: 08/08/22 08:00 Dose: 50 mcg Allergies Allergies Allergy/AdvReac Type Severity Reaction Status Date / Time venlafaxine [From Effexor] AdvReac Agitated Verified 07/27/22 18:47 Assessment & Plan Assessment & Plan (1) Depression, major, severe recurrence: Status: Acute Code(s): F33.2 - Major depressive disorder, recurrent severe without psychotic features Plan The patient is an elderly male with a long history of major depressive disorder and other several medical comorbidities such as chronic pain,DISH syndrome, admitted for suicidal ideation in the context of marital conflict and increased pain. He was started on Lexapro with for improvement. Plan 1. Continue Lexapro 10 mg p.o. daily. 2. Continue medical treatment. 3. Start working on discharge planning. I spent ___20___ minutes with the patient and/or on the patient floor today, greater than?50% of which was spent counseling/coordinating care. Reason for contiued inpatient stay Substantial Risk for: inability to function, rapid decompensation and med/psych decompensation
[2022-08-08] MEDS: Furosemide 40 MG TABLET PO (17:04)
[2022-08-08] MEDS: Atorvastatin Calcium 40 MG TABLET PO (22:31)
[2022-08-08] MEDS: Losartan Potassium 25 MG TABLET PO (22:31)
[2022-08-08] MEDS: traZODone HCL 100 MG TABLET 200 MG PO (22:34)
[2022-08-08] MEDS: TiZANidine HCL 4 MG TABLET PO (22:34)
[2022-08-08 22:48] VITALS: BP 130/63; PULSE 57; RESP 16; TEMP 36.1; O2SAT 95
[2022-08-09] MEDS: Omeprazole 20 MG CAPSULE.DR PO (06:18)
[2022-08-09] MEDS: Levothyroxine Sodium 112 MCG TABLET PO (06:18)
[2022-08-09 07:00] VITALS: BMI 43.9
[2022-08-09 08:00] VITALS: BP 101/66; PULSE 62; RESP 16; TEMP 36.6; O2SAT 93
--- NOTE | 2022-08-09 08:03 | HO.PSYCHPN ---
Subjective Subjective Date of Service: 08/09/22 Reason For Visit: unspecified depressive disorder Subjective Notes: Conditional Voluntary Interim History: The nursing staff reported the patient has been compliant with treatment. He slept well last night. Yesterday, he was complaining of pain that resolved with the clock for neck and later in the evening with oxycodone. On interview the patient denies new symptoms he adamantly denies suicidal ideation. We discussed about discharge planning tomorrow. Mental Status Exam Mental Status Exam Patient Appearance: Well Grooomed and Appropriate Patient Orientation: Person, Place, Time and Situation Level of Consciousness: Awake and Appropriate Patient Behavior: Cooperative Mood Description: Depressed Affect Description: Constricted Ability to Follow Directions: Good Speech Pattern: Clear Hallucinations: None Delusions: Not Present Thought Process: Linear Thought Content: positive for Circumstantial Judgement: Fair Diagnostics Vital Signs (24Hr): Vital Signs - 24 hr 08/08/22 22:48 Temperature 97.0 F Pulse Rate 57 Respiratory Rate 16 Blood Pressure 130/63 Pulse Oximetry 95 Oxygen Delivery Method Room Air BMI result Body Mass Index 41.3 Labs Results: 07/28/22 07:19 Medications Medications Current Medications Acetaminophen (Acetaminophen 325 Mg Tablet) 650 mg PO Q6H PRN PRN Reason: Headache/Pain Mild Scale (1-3) Al Hydroxide/Mg Hydroxide (Magnesium Hydrox/Alum Hydrox 30 Ml Oral.Susp) 30 ml PO Q6H PRN PRN Reason: Heartburn/Nausea Atorvastatin Calcium (Atorvastatin Calcium 40 Mg Tablet) 40 mg PO BEDTIME [facility] Last Admin: 08/08/22 22:31 Dose: 40 mg Diclofenac Sodium (Diclofenac Sodium Delayed Rel 75 Mg Tablet.) 75 mg PO TID [facility] Last Admin: 08/08/22 21:29 Dose: 75 mg Escitalopram Oxalate (Escitalopram Oxalate 10 Mg Tablet) 10 mg PO DAILY [facility] Last Admin: 08/08/22 08:00 Dose: 10 mg Furosemide (Furosemide 40 Mg Tablet) 40 mg PO DAILY@1700 [facility]; Protocol Last Admin: 08/08/22 17:04 Dose: 40 mg Hydroxyzine HCl (Hydroxyzine Hcl 25 Mg Tablet) 25 mg PO Q6H PRN PRN Reason: Anxiety Last Admin: 08/02/22 21:28 Dose: 25 mg Levothyroxine Sodium (Levothyroxine Sodium 112 Mcg Tablet) 112 mcg PO DAILY@0600 [facility] Last Admin: 08/09/22 06:18 Dose: 112 mcg Losartan Potassium (Losartan Potassium 50 Mg Tablet) 50 mg PO DAILY [facility]; Protocol Last Admin: 08/08/22 09:29 Dose: 50 mg Losartan Potassium (Losartan Potassium 25 Mg Tablet) 25 mg PO BEDTIME [facility]; Protocol Last Admin: 08/08/22 22:31 Dose: 25 mg Magnesium Hydroxide (Milk Of Magnesia 30 Ml Oral.Susp) 30 ml PO DAILY PRN PRN Reason: Constipation Multivitamins/Vitamin C (Multivitamin Tablet) 1 tab PO DAILY [facility] Last Admin: 08/08/22 08:00 Dose: 1 tab Olanzapine (Olanzapine Odt 10 Mg Tab.Rapdis) 5 mg TRANSLINGU BID PRN PRN Reason: agitation Omeprazole (Omeprazole 20 Mg Capsule.Dr) 20 mg PO DAILY@0630 [facility] Last Admin: 08/09/22 06:18 Dose: 20 mg Oxycodone HCl (Oxycodone Hcl Immed Release 5 Mg Tablet) 10 mg PO Q6H PRN PRN Reason: Breakthrough Pain Last Admin: 08/08/22 22:32 Dose: 10 mg Tizanidine HCl (Tizanidine Hcl 4 Mg Tablet) 4 mg PO BEDTIME [facility] Last Admin: 08/08/22 22:34 Dose: 4 mg Trazodone HCl (Trazodone Hcl 100 Mg Tablet) 200 mg PO BEDTIME [facility] Last Admin: 08/08/22 22:34 Dose: 200 mg Triamcinolone Acetonide (Triamcinolone Acet 0.1 % Cream 15 Gm Tube) 1 appl TOPICAL BID [facility]; Protocol Last Admin: 08/08/22 22:35 Dose: Not Given Vitamin D (Cholecalciferol (Vitamin D3) 25 Mcg Tablet) 50 mcg PO DAILY [facility] Last Admin: 08/08/22 08:00 Dose: 50 mcg Allergies Allergies Allergy/AdvReac Type Severity Reaction Status Date / Time venlafaxine [From Effexor] AdvReac Agitated Verified 07/27/22 18:47 Assessment & Plan Assessment & Plan (1) Depression, major, severe recurrence: Status: Acute Code(s): F33.2 - Major depressive disorder, recurrent severe without psychotic features Plan The patient is an elderly male with a long history of major depressive disorder and other several medical comorbidities such as chronic pain,DISH syndrome, admitted for suicidal ideation in the context of marital conflict and increased pain. He was started on Lexapro with for improvement. Plan 1. Continue Lexapro 10 mg p.o. daily. 2. Continue medical treatment. 3. Start working on discharge planning. I spent ___20___ minutes with the patient and/or on the patient floor today, greater than?50% of which was spent counseling/coordinating care. Reason for contiued inpatient stay Substantial Risk for: inability to function, rapid decompensation and med/psych decompensation
[2022-08-09] MEDS: Multivitamin TABLET 1 TAB PO (08:12)
[2022-08-09] MEDS: oxyCODONE HCl Immed Release 5 MG TABLET 10 MG PO ×2 (08:12→21:29)
[2022-08-09] MEDS: Diclofenac Sodium Delayed Rel 75 MG TABLET.DR PO ×3 (08:13→22:37)
[2022-08-09] MEDS: Escitalopram Oxalate 10 MG TABLET PO (08:13)
[2022-08-09] MEDS: Losartan Potassium 50 MG TABLET PO (08:13)
[2022-08-09] MEDS: Cholecalciferol (Vitamin D3) 25 MCG TABLET 50 MCG PO (08:13)
[2022-08-09] MEDS: Triamcinolone Acet 0.1 % Cream 15 GM TUBE 1 APPL TOPICAL (08:15)
[2022-08-09] MEDS: Furosemide 40 MG TABLET PO (16:41)
[2022-08-09 18:00] VITALS: BP 123/69; PULSE 63; RESP 18; TEMP 35.9; O2SAT 93
[2022-08-09] MEDS: Atorvastatin Calcium 40 MG TABLET PO (22:33)
[2022-08-09] MEDS: traZODone HCL 100 MG TABLET 200 MG PO (22:33)
[2022-08-09] MEDS: TiZANidine HCL 4 MG TABLET PO (22:33)
[2022-08-09] MEDS: Losartan Potassium 25 MG TABLET PO (22:34)
[2022-08-10] MEDS: Omeprazole 20 MG CAPSULE.DR PO (06:39)
[2022-08-10] MEDS: Levothyroxine Sodium 112 MCG TABLET PO (06:39)
--- NOTE | 2022-08-10 07:38 | PM.PSYDC ---
DS: Providers Provider Date of Service: 08/10/22 Date of admission: 07/27/22 15:46 Date of discharge: 08/10/22 Primary care physician: Zoila Khan MD Consults: 07/27/22 10:58 Consult to Hospitalist Routine Consulting Provider: Hospitalist Reason For Exam: Direct admission Attending physician on discharge: Ortiz Bermudez DS: Diagnosis Discharge Diagnosis (1) Depression, major, severe recurrence: Status: Acute DS: Medications Discharge Medications Home Medications: Home Medications Medication Instructions Recorded Confirmed Multi-Daily W/Minerals 1 tab PO DAILY 07/27/22 07/27/22 Vitamin D3 2,000 units PO DAILY 07/27/22 07/27/22 atorvastatin 40 mg PO BEDTIME 07/27/22 07/27/22 coenzyme Q10 200 mg capsule (Co 200 mg PO DAILY 07/27/22 07/27/22 Q-10) furosemide 40 mg tablet (Lasix) 30 mg PO DAILY 07/27/22 07/27/22 krill oil 1,000 mg PO DAILY 07/27/22 07/27/22 levothyroxine 125 mcg PO DAILY 07/27/22 07/27/22 losartan 25 mg PO BEDTIME 07/27/22 07/27/22 losartan 50 mg PO DAILY 07/27/22 07/27/22 pantoprazole 20 mg PO DAILY 07/27/22 07/27/22 tizanidine 4 mg PO DAILY 07/27/22 07/27/22 tramadol 50 mg PO DAILY PRN Pain, Severe 07/27/22 07/27/22 trazodone 200 mg PO BEDTIME 07/27/22 07/27/22 triamcinolone acetonide topical BID 07/27/22 Zoloft 50 mg PO DAILY 07/28/22 07/28/22 Mental Status Exam Mental Status Exam Patient Appearance: Well Grooomed and Appropriate Patient Orientation: Person, Place, Time and Situation Level of Consciousness: Awake and Appropriate Patient Behavior: Appropriate and Cooperative Mood Description: Calm Affect Description: Constricted Patient Cognition Impaired: No Ability to Follow Directions: Good Speech Pattern: Clear Hallucinations: None Delusions: Not Present Thought Process: Goal Oriented and Linear Thought Content: positive for Circumstantial Depressive Symptoms: Insomnia, Increased Irritability, Muscle Pain, Feelings of Guilt, Low Self Esteem and Loss of Energy Judgement: Fair Judgement and Insight: Judgment improved, insight fair. DS: Summary Hospital Course Hospital Course: The patient is a 67-year-old male, , father of adult children, living with his 2nd with a long history of depression. He was treated with citalopram for several years but he stopped several months ago without telling his PCP. The patient relapsed on depressive symptoms elicited by depressed mood, anhedonia, lack of energy, feelings of hopelessness and worthlessness. Eventually he was restarted Zoloft whit[place] made him more irritable with frequent fights to his . He start having suicidal ideation with a plan to hang himself, he was rushed to the emergency room, transferred to [facility] and from there transfer here. Please see the HPI for further details on the admission note. On admission, the patient complained of depression with neurovegetative symptoms. We discussed risks, benefits, side-effects and alternatives and he agreed to start Lexapro that we started titrating up to 10 mg p.o. daily. The patient has also other problems such as chronic pain since he has DISH syndrome with several prior surgical procedures. The patient was not taking his tramadol as needed, we encourage him to start taking it whenever his pain escalates. It was noticeable that he was more irritable when he was in pain. He agreed to take Voltaren titrated up to 75 mg p.o. t.i.d. that improved in his pain. Also we had to add 1 dose of oxycodone when his pain was too severe. We had several family meetings, it was clear that he has a marital conflict that started several years ago and most likely he wants to finish the relation. Even though, discharge home is a safe plan. Since the patient denies suicidality and his mood improved discharge planning was discussed. Time spent discussing smoking cessation with patient: 3 to 10 minutes Status at Discharge Cognitive/behavioral status at discharge: At baseline Functional status at discharge: independent ambulation Overall status at discharge: patient is back to baseline Time Spent with Patient Time attestation: Total time spent providing and/or coordinating discharge services: Time spent: Less than 30 minutes Discharge Plan Discharge Anticipated Discharge Date/Time: 08/10/22 10:44 Patient Disposition: Home, Self-Care Discharge Diagnosis: Major depressive disorder recurrent episode severe without psychosis. Chronic pain Referrals: [facility]: IVAN Abdul [Other] - 08/17/22 11:30 am (Your therapy appointment with Integrated [facility] at [facility] is scheduled for 08/17/22 at 11:30am in person with IVAN Abdul. ) [facility] IVAN Canseco [Other] - 08/15/22 10:00 am (Your intake appointment for therapy and psychiatry services at [facility] in [place] is scheduled for Saturday08/15/22 in person at 10AM. Please make sure to attend the intake appointment. Once intake appointment is completed you will be given a medication prescriber appointment that day for psychiatry follow up with [facility]. There will be one additional appointment with Mahi Nascimento following and then you will be triaged for therapy waitlist with [facility]. Your [facility] Integrated [facility] Clinician will be providing you therapy until you can be assigned therapy with [facility]. ) Zoial Khan MD [Primary Care Provider] - 08/13/22 3:45 pm (Your Follow up Appointment was scheduled for Saturday08/13/22 @ 3:45pm. Per [facility] Rheumatology office. The structural technician Dr Bae is taking new patients. They are requesting you request records be sent by your PCP's office of your last clinical visit and most recent clinical notes from [facility] to the Rheumatology office of [facility]. The Fax number is [phone]. The address of [facility] Rheumatology is [address] [place] [address]. ) Discharge Medications: New multivitamin [Daily-Sari] Tablet 1 tab PO DAILY 30 Days Qty: 30 0RF losartan 50 mg Tablet 50 mg PO DAILY 30 Days Qty: 30 0RF Protocol: Hold for SBP< HOLD for SBP < : 90 atorvastatin 40 mg Tablet 40 mg PO BEDTIME 30 Days Qty: 30 0RF tizanidine 4 mg Tablet 4 mg PO BEDTIME 30 Days Qty: 30 0RF triamcinolone acetonide 0.1 % Cream 1 appl topical BID 30 Days Qty: 1 0RF Protocol: Apply to: Apply to: ears trazodone 100 mg Tablet 200 mg PO BEDTIME 30 Days Qty: 60 0RF losartan 25 mg Tablet 25 mg PO BEDTIME 30 Days Qty: 30 0RF Protocol: Hold for SBP< HOLD for SBP < : 90 diclofenac sodium 75 mg Tablet,Delayed Release (Dr/Ec) 75 mg PO TID 30 Days Qty: 90 1RF levothyroxine 112 mcg Tablet 112 mcg PO DAILY@0600 30 Days Qty: 30 0RF oxycodone 5 mg Tablet 10 mg PO Q6H PRN (Reason: Breakthrough Pain) 30 Days Qty: 60 0RF Rx Instructions: Partial Fill upon patient request. escitalopram oxalate 10 mg Tablet 10 mg PO DAILY 30 Days Qty: 30 0RF cholecalciferol (vitamin D3) 25 mcg (1,000 unit) Tablet 50 mcg PO DAILY 30 Days Qty: 60 0RF Continued furosemide [Lasix] 40 mg Tablet 30 mg PO DAILY 30 Days Qty: 23 0RF Rx Instructions: pt takes at 5pm coenzyme Q10 [Co Q-10] 200 mg Capsule 200 mg PO DAILY 30 Days Qty: 30 0RF krill oil 1,000 mg PO DAILY 30 Days Qty: 30 0RF pantoprazole 20 mg PO DAILY 30 Days Qty: 30 0RF tramadol 50 mg PO DAILY PRN (Reason: Pain, Severe) 30 Days Qty: 90 0RF Discontinued losartan 50 mg PO DAILY Rx Instructions: given in am Multi-Daily W/Minerals 1 tab PO DAILY Vitamin D3 2,000 units PO DAILY atorvastatin 40 mg PO BEDTIME levothyroxine 125 mcg PO DAILY losartan 25 mg PO BEDTIME tizanidine 4 mg PO DAILY trazodone 200 mg PO BEDTIME triamcinolone acetonide topical BID Rx Instructions: apply to crusted areas ears bilat Zoloft 50 mg PO DAILY Discharge Orders: Discharge Order (Routine); Ordered 08/10/22 Ordered By: Ortiz Bermudez Diet: Advance to usual diet Activity on Discharge: As tolerated Stand Alone Forms: Patient Portal Discharge page Care Plan Goals: Care plan goals achieved in this admission Health Concerns: Continue treatment as an outpatient by primary care physician Plan of Treatment: Continue medication management as an outpatient Assessment: Elderly male with a history of chronic pain a major depressive disorder who was admitted for suicidality in the context of change of medications and marital conflicts. At this moment no evidence of safety concerns ready for discharge in the community.
[2022-08-10] MEDS: Cholecalciferol (Vitamin D3) 25 MCG TABLET 50 MCG PO (09:43)
[2022-08-10] MEDS: Escitalopram Oxalate 10 MG TABLET PO (09:44)
[2022-08-10] MEDS: Multivitamin TABLET 1 TAB PO (09:44)
[2022-08-10] MEDS: Losartan Potassium 50 MG TABLET PO (09:44)
[2022-08-10] MEDS: Diclofenac Sodium Delayed Rel 75 MG TABLET.DR PO (09:44)
[2022-08-10 09:46] VITALS: BP 120/57; PULSE 63; RESP 18; TEMP 36.3; O2SAT 94
== END 2022-08-10 13:46 | disposition home or self-care (01) | DRG 885 ==
PROVIDERS: Admitting Provider Psychiatry & Neurology Psychiatry; PCP Internal Medicine; Visit Provider Psychiatry & Neurology Psychiatry
DX: F33.2 Major depressive disorder, recurrent severe without psychotic features (principal); R45.851 Suicidal ideations; E03.9 Hypothyroidism, unspecified; E78.5 Hyperlipidemia, unspecified; G47.33 Obstructive sleep apnea (adult) (pediatric); M19.90 Unspecified osteoarthritis, unspecified site; K21.9 Gastro-esophageal reflux disease without esophagitis; G89.29 Other chronic pain; Z87.891 Personal history of nicotine dependence; Z79.899 Other long term (current) drug therapy
CPT/HCPCS: 36415; 80053; 80061; 84443